=== PATIENT | female | born 1990 | race Two or more races ===

== ENCOUNTER 2017-05-29 19:53 | Emergency (ER) | payer SELFPAY ==
[2017-05-29] MEDS ORDERED: ACETAMINOPHEN 325 MG TABLET PO ONE (20:26)
--- NOTE | 2017-05-29 20:30 | ER Document Report ---
ED General - General Chief Complaint: Vaginal Bleeding Stated Complaint: VAGINAL BLEEDING,SORE THROAT,CHILLS Time Seen by Provider: 05/29/17 20:24 Mode of Arrival: Ambulatory Information source: Patient Notes: Patient presents to emergency department with multiple complaints. She reports sore throat chills body aches neck pain and headache that started this morning. Patient reports she took ibuprofen yesterday but nothing today. Patient also reports she has been spotting for the past 30 days with light cramping. She reports last normal menses was in March. She reports she is sexually active and does not use protection. She denies vaginal discharge denies pain with void. Denies urinary frequency, denies fever vomiting diarrhea. TRAVEL OUTSIDE OF THE [place] IN LAST 30 DAYS: No - HPI Onset: Other - this morning flu symptoms, spotting for 30 days Quality of pain: Cramping Severity: Moderate Pain Level: 3 Associated symptoms: Headache, Sore throat Exacerbated by: Denies Relieved by: Denies Similar symptoms previously: No Recently seen / treated by doctor: No - Related Data Allergies/Adverse Reactions: No Known Allergies Allergy (Verified 05/29/17 19:54) Past Medical History - General Information source: Patient Last Menstrual Period: last normal Nov - Social History Smoking Status: Unknown if Ever Smoked Cigarette use (# per day): No Frequency of alcohol use: Occasional Drug Abuse: None Occupation: alice Lives with: Family Family History: Reviewed & Not Pertinent Patient has suicidal ideation: No Patient has homicidal ideation: No - Medical History Medical History: Negative Surgical Hx: Negative - Immunizations Hx Diphtheria, Pertussis, Tetanus Vaccination: No Review of Systems - Review of Systems Notes: Review HPI for review of systems., All other systems negative Physical Exam - Vital signs Vitals: Temp Pulse Resp BP Pulse Ox 99.4 F 101 H 18 129/85 H 95 05/29/17 19:57 05/29/17 19:57 05/29/17 19:57 05/29/17 19:57 05/29/17 19:57 - Notes Notes: PHYSICAL EXAMINATION: GENERAL: Well-appearing and in no acute distress nontoxic looking HEAD: Atraumatic, normocephalic. EYES: Pupils equal round extraocular movements intact, sclera anicteric, conjunctiva are normal. ENT: nares patent, oropharynx + erythema, no exudates. Moist mucous membranes. opens mouth wide, clear voice NECK: Normal range of motion, supple without lymphadenopathy LUNGS: CTAB and equal. No wheezes rales or rhonchi. HEART: Regular rate and rhythm without murmurs ABDOMEN: Soft, no tenderness. No guarding, no rebound EXTREMITIES: Normal range of motion, no pitting edema. No cyanosis. NEUROLOGICAL: Cranial nerves grossly intact. Normal sensory/motor exams. PSYCH: Normal mood, normal affect. SKIN: Warm, Dry, normal turgor, no rashes or lesions noted Course - Re-evaluation Re-evalutation: 05/29/17 22:17 Patient instructed on negative strep and flu test. Instructed on positive and transvaginal ultrasound ordered. She verbalized understanding of questions asked. She was instructed on results of ultrasound 8w2d. Also instructed on follow-up hCG on Wednesday him the importance of follow-up with her [employer] HEAD[employer]ATE OPERATOR. Patient reports she has insurance and will follow up with [facility] on Wednesday. - Vital Signs Vital signs: Temp Pulse Resp BP Pulse Ox 98.9 F 86 18 126/83 H 99 05/29/17 23:23 05/29/17 23:23 05/29/17 19:57 05/29/17 23:23 05/29/17 23:23 - Laboratory Laboratory results interpreted by me: 05/29/17 20:50 Beta HCG, Quant 12776.00 H - Diagnostic Test Radiology reviewed: Reports reviewed Discharge - Discharge Clinical Impression: Sore throat, Body aches, Vaginal bleeding Qualifiers: Weeks of gestation: 8 weeks Qualified Code(s): Z3A.08 - 8 weeks gestation of Condition: Stable Disposition: HOME, SELF-CARE Instructions: Acetaminophen, [facility], [facility], ([facility]), Sore Throat ([facility]) Additional Instructions: *You have been evaluated for a sore throat, flu like symptoms, headache, vaginal bleeding, abd cramping, *Your ultrasound showed that you are 8 weeks 2 days with a heart rate of 195 with subchorionic bleed. *Your flu and strep test were negative *Warm salt water gargles and throat lozenges for comfort for your sore throat *Do not let anyone drink/eat after you *Good hand washing *Follow-up with a primary care provider within one week for recheck *Follow up with the health department or LONGWALL HEADGATE OPERATOR for care within one week *Return to [facility] Wednesday for repeat test. Call Pat at [phone] for results two hours after the test. Your HCG level today was 70,355 *Return to ED for worsening condition change, needs Forms: Elevated Blood Pressure, Follow-Up Laboratory Testing
[2017-05-29 21:12] LABS: A TYPE INFLUENZA AG NEGATIVE (NEGATIVE); B INFLUENZA AG NEGATIVE (NEGATIVE)
--- NOTE | 2017-05-29 23:06 | RADIOLOGY REPORT (SQ) ---
EXAM DESCRIPTION: U/S OB TRANSVAG W/DOPPLER COMPLETED DATE/TIME: 05/29/2017 10:51 pm REASON FOR STUDY: vag bleed abd cramp COMPARISON: None. TECHNIQUE: Transvaginal static and realtime grayscale images acquired of the pelvis. Additional sincere cted spectral and color Doppler images recorded. All images stored on PACs. [id number] LIMITATIONS: None. FINDINGS: FETUS: Living intrauterine . EGA: 8 weeks, 2 days KARRI: 01/06/2018 FHR: 195 beats per minute. SUBCHORIONIC BLEED: Yes SIZE OF BLEED: 2.6 x 0.8 x 1.4 cm UTERUS: No masses. No anomalies. CERVICAL LENGTH: 3.5 cm Closed. RIGHT ADNEXA: Ovary not identified. No adnexal free fluid. No adnexal masses. LEFT ADNEXA: Ovary not identified. No adnexal free fluid. No adnexal masses. FREE FLUID: None. OTHER: No other significant finding. IMPRESSION: LIVING INTRAUTERINE . EGA 8 weeks, 2 days Trimester of : First - 0 to 13 weeks. TECHNICAL DOCUMENTATION: JOB ID: [id number] [employer]- All Rights Reserved
[2017-05-29 23:24] VITALS: BP 126/83
== END 2017-05-29 23:31 | disposition home or self-care (01) ==
LOC: ER 19:53
DX: O20.9 Hemorrhage in early pregnancy, unspecified (principal); O99.511 Diseases of the respiratory system complicating pregnancy, first trimester; J02.9 Acute pharyngitis, unspecified; O26.891 Other specified pregnancy related conditions, first trimester; R51 Headache; R68.83 Chills (without fever); O99.89 Other specified diseases and conditions complicating pregnancy, childbirth and the puerperium; M54.2 Cervicalgia; Z3A.08 8 weeks gestation of pregnancy
CPT/HCPCS: 36415; 76817; 84702; 87070; 87804; 87880; 93976; 99284

== ENCOUNTER → 2017-05-31 | Outpatient (CLI) | payer SELFPAY | LOC: OD 12:42 | PROVIDERS: ATTEND Nurse Practitioner Family | DX: O26.859 Spotting complicating pregnancy, unspecified trimester (principal); Z3A.00 Weeks of gestation of pregnancy not specified | CPT/HCPCS: 36415; 84702 ==

== ENCOUNTER 2018-06-03 10:21 | Emergency (ER) | payer SELFPAY ==
--- NOTE | 2018-06-03 11:26 | ER Document Report ---
ED Medical Screen (RME) - General Chief Complaint: Abdominal Cramping Stated Complaint: ABDOMINAL PAIN Time Seen by Provider: 06/03/18 11:18 Primary Care Provider: DOUG BAUMAN NP [NURSE PRACTITIONER] - Follow up as needed Notes: Patient says that she has had positive tests and has had some spotting since May 12, but it is gotten heavier bleeding in the past couple of days. She is having daily cramping that is becoming more severe. She had 2+ home test last week. Has not seen OB or had an ultrasound. This will be the patient's second . TRAVEL OUTSIDE OF THE [place] IN LAST 30 DAYS: No - Related Data Allergies/Adverse Reactions: No Known Allergies Allergy (Verified 06/03/18 10:23) Past Medical History - Social History Cigarette use (# per day): No Chew tobacco use (# tins/day): No Frequency of alcohol use: Occasional Drug Abuse: None Family history: Reviewed & Not Pertinent - Immunizations Hx Diphtheria, Pertussis, Tetanus Vaccination: No Review of Systems - Review of Systems Notes: REVIEW OF SYSTEMS: CONSTITUTIONAL : Denies fever. CARDIOVASCULAR: Denies chest pain. RESPIRATORY: Denies cough, chest congestion, or shortness of breath. GASTROINTESTINAL: Denies abdominal pain or nausea, vomiting, or diarrhea. GENITOURINARY: Denies difficulty or painful urinating, urinary frequency, blood in urine. See HPI. MUSCULOSKELETAL: Denies back or neck pain. Denies joint pain or swelling. SKIN: Denies rash or skin lesions. NEUROLOGICAL: Denies LOC or altered mental status. Denies headache. Denies sensory loss or motor deficits. ALL OTHER SYSTEMS REVIEWED AND NEGATIVE. Physical Exam - Vital signs Vitals: Temp Pulse Resp BP Pulse Ox 98.5 F 83 18 129/80 H 100 06/03/18 10:56 06/03/18 10:56 06/03/18 10:56 06/03/18 10:56 06/03/18 10:56 Interpretation: Normal Notes: PHYSICAL EXAMINATION: GENERAL: Well-appearing, in no acute distress. HEAD: Atraumatic, normocephalic. EYES: Pupils equal round and reactive to light, extraocular movements intact. NECK: Normal range of motion, supple. LUNGS: Breath sounds clear and equal bilaterally. HEART: Regular rate and rhythm without murmurs. ABDOMEN: Soft, nontender. No guarding or rebound. No masses. BACK: No tenderness throughout entire back. EXTREMITIES: Normal range of motion without pain. NEUROLOGICAL: Normal speech, normal gait. Normal sensory, motor, and reflex exams. Awake, alert, and oriented x3. Cranial nerves normal. PSYCH: Normal mood, normal affect. SKIN: Warm, dry, no rashes. Course - Re-evaluation Re-evalutation: 06/03/18 21:14 I have advised the patient of the lab results and ultrasound. I have told her that she is right about the time that we should be able to see a heartbeat and the lack of a heartbeat may indicate a problem with the . It is borderline whether she is far enough along to see a heartbeat or not. I have advised the patient to get another outpatient quantitative beta hCG done next Wednesday or Wednesday and call me and I will check the results and let her know the outcome. Advised to return if she runs a fever or has significant worsening of pain or other symptoms. Patient is Rh- and was given RhoGam. - Vital Signs Vital signs: Temp Pulse Resp BP Pulse Ox 98.5 F 72 16 128/78 H 100 06/03/18 10:56 06/03/18 14:16 06/03/18 14:16 06/03/18 14:16 06/03/18 14:16 - Laboratory Result Diagrams: 06/03/18 11:39 Laboratory results interpreted by me: 06/03/18 11:39 Beta HCG, Quant 54985.00 H - Diagnostic Test Radiology reviewed: Image reviewed, Reports reviewed - Ultrasound shows single IUP with questionable viability. 6 weeks 5 days gestation. pole noted. No visualized heart rate. Doctor's Discharge - Discharge Clinical Impression: , Pelvic cramping, Vaginal bleeding, Threatened miscarriage in early Condition: Stable Disposition: HOME, SELF-CARE Additional Instructions: : You are . care is best started as early in as possible. If you're unsure about continuing this , you should discuss this with your physician or with storage battery tester at [facility]. You should take only medications approved by your physician. Acetaminophen can safely be taken for minor pains. As a rule, medication for chronic conditions such as asthma or seizures can safely be continued. You should discuss with the physician every medicine you take. Any regular exercise program can be continued. Talk to your physician, however, before engaging in competitive or demanding sports. Alcohol, smoking, and "street drugs" are dangerous to your baby. Cocaine is especially dangerous. Don't use any illicit drugs! BLEEDING DURING EARLY : You have been evaluated for passing blood while . While we take this symptom very seriously, most women with your degree of bleeding will go on to have a perfectly normal baby. At this time, there is no indication that a miscarriage will occur. (A miscarriage occurs when the fetus is abnormal. There is no medicine or treatment to prevent it.) A more serious cause of bleeding is tubal (or ectopic) . An ultrasound usually can show whether the is in the uterus or in the tube. Sometimes in early , no fetus is seen. In this case, careful follow-up, including repeat blood tests and repeat ultrasound, is necessary. Do not douche or have sex for at least a week, or until OK'd by the doctor. Don't use tampons. Call the doctor or return for re-examination if there is an increase in bleeding or cramping, extreme weakness, fainting, new abdominal pain, fever, or passage of tissue. THREATENED MISCARRIAGE: You have been evaluated for a possible miscarriage. At this time, there is no indication that a miscarriage will occur. Most women with your symptoms will go on to have a perfectly normal baby. However, careful observation will be necessary. A miscarriage occurs when the fetus is abnormal. There is no medicine or treatment for it. You should rest in bed until the symptoms have resolved. Do not douche or have sex for at least a week, or until OK'd by the doctor. Call the doctor or return for re-examination if there is an increase in bleeding or cramping, or passage of tissue. RHOGAM: Rhogam is given to a woman who has Rh negative blood type when she has vaginal bleeding during her or at the time of the delivery of her baby. If a woman is Rh negative, her body will form antibodies against red blood cells from an Rh positive fetus or baby that mix with her blood during a threatened or actual miscarraige or delivery. These antibodies will remain in the woman's body forever and will attack any future Rh positive fetus preventing it from developing into a normal baby. Rhogam is given to prevent the mother's body from forming these antibodies. Your looks like it is about 6 weeks in gestation. We do not see a heartbeat at this time. That may be because it is too early to see 1 or there is a problem with the . As a result, we recommend that she have a repeat blood test done in 3-4 days to see if the test level is rising like it should. REPEAT BLOOD TEST: At this time, it is uncertain if you have a viable . During the first three months of , the hormone produced from the placenta will steadily rise, usually doubling in value every 2 - 3 days. In order to determine if your is viable and likely be succesful, a repeat of this blood test for the hormone is recommended in 2 - 3 days. An order for this test to be done as an outpatient is being provided. After you have this repeat test done, call your doctor or call us for the results. If the value of the test is increasing as would be expected in a normal , then your is likely to be ok. However, if the value of the test is declining, it will suggest something has happened with your and it marni l not likely be a successful . OBSTETRIC-GYNECOLOGIC (OB-MANUFACTURING PROJECT ENGINEER) PHYSICIANS IN [place]: [facility] [address] [place] [address] [phone] If you we will get a repeat blood test drawn on Wednesday or Wednesday and call me, I will give you the results. Forms: Follow-Up Laboratory Testing Referrals: DOUG BAUMAN NP [NURSE PRACTITIONER] - Follow up as needed
[2018-06-03 11:57] LABS: ABSOLUTE LYMPHOCYTES (AUTO) 1.8 10^3/uL (0.5-4.7); ABSOLUTE MONOCYTES (AUTO) 0.6 10^3/uL (0.1-1.4); ABSOLUTE NEUT (AUTO) 7.3 10^3/uL (1.7-8.2); BASOPHILS % (AUTO) 0.2 % (0-2); EOSINOPHILS % (AUTO) 0.3 % (0-6); HEMATOCRIT 39.4 % (36.0-47.0); HEMOGLOBIN 13.3 g/dL (12.0-15.5); LYMPHOCYTES % (AUTO) 18.1 % (13-45); MEAN CORPUSCULAR HEMOGLOBIN 27.6 pg (27.0-33.4); MEAN CORPUSCULAR HGB CONC 33.8 g/dL (32.0-36.0); MEAN CORPUSCULAR VOLUME 82 fl (80-97); MONOCYTES % (AUTO) 6.6 % (3-13); PLATELET COUNT 264 10^3/uL (150-450); RED BLOOD COUNT 4.83 10^6/uL (3.72-5.28); RED CELL DISTRIBUTION WIDTH 13.4 % (11.5-14.0); SEGMENTED NEUTROPHILS % (AUTO) 74.8 % (42-78); TOTAL CELLS COUNTED % (AUTO) 100 %; WHITE BLOOD COUNT 9.7 10^3/uL (4.0-10.5)
--- NOTE | 2018-06-03 13:23 | RADIOLOGY REPORT (SQ) ---
EXAM DESCRIPTION: U/S OB TRANSVAGINAL W/O DOP COMPLETED DATE/TIME: 06/03/2018 1:10 pm REASON FOR STUDY: Positive home preg test, bleeding and cramping COMPARISON: None. TECHNIQUE: Transvaginal static and realtime grayscale images acquired of the pelvis. Additional sincere cted spectral and color Doppler images recorded. All images stored on PACs. bHCG: Pending. CLINICAL DATES: Not Available. LIMITATIONS: None. FINDINGS: FETUS: Single IUP. Viability cannot be determined. ULTRASOUND EGA: 6 weeks 5 days. ULTRASOUND KARRI: 01/22/2019 EFW: Not applicable less than 20 weeks. CRL: Visualized. FHR: Not visualized. SURVEY: No visualized anomalies. AMNIOTIC FLUID: Adequate amount. PLACENTA: Not yet developed due to early gestation. SUBCHORIONIC BLEED: No. SIZE OF BLEED: Not applicable. UTERUS: No masses. No anomalies. RIGHT ADNEXA: Ovary not identified due to poor acoustical window. No adnexal free fluid. No adnexal masses. LEFT ADNEXA: Normal ovary with normal vascular flow. No adnexal free fluid. No adnexal masses. FREE FLUID: None. OTHER: No other significant finding. IMPRESSION: Single intrauterine gestation. pole is identified. Heart activity could not be i dentified. EGA 6 weeks 5 days based on crown-rump length. Followup beta HCG and ultrasound is recommended to en sure viability. Trimester of : First - 0 to 13 weeks. TECHNICAL DOCUMENTATION: JOB ID: [id number] [employer]- All Rights Reserved rev Reading location - IP/workstation name: [email or web address]
[2018-06-03 14:18] VITALS: BP 128/78
== END 2018-06-03 14:18 | disposition home or self-care (01) ==
LOC: ER 10:21
DX: O20.0 Threatened abortion (principal); O26.891 Other specified pregnancy related conditions, first trimester; R10.2 Pelvic and perineal pain; R10.9 Unspecified abdominal pain; Z3A.01 Less than 8 weeks gestation of pregnancy
CPT/HCPCS: 99284; 96372; 86900; 86901; 36415; 86850; 84702; 85025; 76817; J2790

== ENCOUNTER → 2018-06-06 | Outpatient (CLI) | payer SELFPAY ==
--- NOTE | 2018-06-06 13:11 | Progress Note ---
Provider Note Provider Note: Patient had repeat beta HCG this morning and it is 72,000, up minimally. Advised patient she needs a followup repeat ultrasound in a week. She is going to try to arrange to see a local RAILRO[employer] DINING CAR STEWARD/STEWARDESS. Doing well. Advised to return to the ED if heavy bleeding with clots, etc, or fever. Star Trevino MD
== END ==
LOC: LAB 11:12
PROVIDERS: ATTEND Emergency Medicine
DX: O20.0 Threatened abortion (principal)
CPT/HCPCS: 36415; 84702

== ENCOUNTER 2018-06-29 12:07 | Day surgery (SDC) | payer MEDICAID ==
[~2018-06-29 12:07] MED LIST: DEXAMETHASONE SOD PHOSPHATE INJ 4 MG/1 ML VIAL ONE; KETOROLAC TROMETHAMINE 60 MG/2 ML SDV ONE; LIDOCAINE 2% INJ-PF (20 MG/ML) 2 ML AMPUL ONE; METOCLOPRAMIDE HCL INJ/PF 10 MG/2 ML SDV ONE; ONDANSETRON HCL INJ/PF 4 MG/2 ML SDV ONE
[2018-06-29] MEDS ORDERED: DOXYCYCLINE HYCLATE 100 MG in DEXTROSE 5%-WATER 250 ML IV PRN (12:22)
[2018-06-29] MEDS ORDERED: METHYLERGONOVINE MALEATE INJ/PF 0.2 MG/1 ML AMPULE ONE (12:26)
[2018-06-29] MEDS ORDERED: MISOPROSTOL 0.2 MG TABLET ONE (12:31)
[2018-06-29] MEDS ORDERED: FENTANYL CITRATE INJ/PF 100 MCG/2 ML AMPUL ONE (12:48)
[2018-06-29] MEDS ORDERED: PROPOFOL INJ 200 MG/20 ML VIAL IV ONE (12:48)
[2018-06-29] MEDS ORDERED: MIDAZOLAM 2 MG/2 ML INJ ONE (12:48)
[2018-06-29 13:02] LABS: HEMATOCRIT 36.2 % (36.0-47.0); HEMOGLOBIN 12.2 g/dL (12.0-15.5); MEAN CORPUSCULAR HEMOGLOBIN 27.6 pg (27.0-33.4); MEAN CORPUSCULAR HGB CONC 33.6 g/dL (32.0-36.0); MEAN CORPUSCULAR VOLUME 82 fl (80-97); PLATELET COUNT 252 10^3/uL (150-450); RED CELL DISTRIBUTION WIDTH 13.5 % (11.5-14.0); WHITE BLOOD COUNT 6.9 10^3/uL (4.0-10.5)
[2018-06-29] MEDS ORDERED: MEPERIDINE HCL/PF INJ 25 MG/1 ML DISP.SYRIN IV PRN (13:35)
[2018-06-29] MEDS ORDERED: DIPHENHYDRAMINE HCL 50 MG/ML VIAL IV PRN (13:35)
[2018-06-29] MEDS ORDERED: FENTANYL CITRATE INJ/PF 100 MCG/2 ML AMPUL IV PRN ×3 (13:35)
[2018-06-29] MEDS ORDERED: OXYCODONE-ACETAMINOPHEN 5-325 MG TABLET PO PRN ×2 (13:35)
[2018-06-29] MEDS ORDERED: PROMETHAZINE HCL INJ 25 MG/1 ML VIAL IV PRN ×2 (13:35)
--- NOTE | 2018-06-29 13:56 | Operative Report ---
Operative Report DATE OF SURGERY: 06/29/18 PREOPERATIVE DIAGNOSIS: 1. Missed at 8 weeks. 2. Rh Negative (Rhogam given) POSTOPERATIVE DIAGNOSIS: Same OPERATION: Suction dilatation and curettage SURGEON: DAVID MARKHAM ANESTHESIA: GA TISSUE REMOVED OR ALTERED: Products of conception COMPLICATIONS: None ESTIMATED BLOOD LOSS: 150 mL INTRAOPERATIVE FINDINGS: Uterus sounded 8 cm; used a 8 mm curved Bahamian curette; minimal amounts of products of conception PROCEDURE: The patient was taken to the Operating Room where general anesthesia was obtained without difficulty. She was prepped and draped in the normal sterile fashion in the dorsal lithotomy position. A speculum was placed in the vagina. A red Arreguin catheter was placed in the patient's bladder and approximately 50 mL's of clear urine was evacuated. The anterior cervix was grasped with a single-tooth tenaculum and the uterus sounded to 8 cm. The cervix was noted to be closed at the beginning of the procedure. Sequential dilators were then used to dilate the cervix to accommodate the the mm suction curett curved. The 8 mm curved suction curet was gently advanced in the usual fashion and good return of tissue. The suction device was then activated and the curett rotated to clear the uterus of the products of conception. A sharp curettage was then performed. The suction device was then gently reintroduced and activated and the curett rotated to clear the uterus of conception which was loosened with recent sharp curettage. The sharp curettage was then performed again until a gritty texture was noted and the cavity was felt to be empty of further tissue. At this time there was minimal bleeding noted from the cervix. All instruments were removed from the patient's cervix and vagina. Monsel's solution was applied to the tenaculum site for hemostasis. Sponge and instrument counts are correct 2. Doxycycline 100 mg IV was given perioperatively. Patient was given Methergine 0.2 mg IM, as well as Cytotec 800 mcg per rectum. The patient tolerated the procedure well and was taken to the recovery area awake and in stable condition.
[2018-06-29] MEDS ORDERED: ACETAMINOPHEN 1,000 MG/100 ML RTUPB IV ONE ×2 (14:27→14:45)
[2018-06-29 16:30] VITALS: BP 139/88
== END 2018-06-29 15:35 | disposition home or self-care (01) ==
LOC: OROUT 12:07
PROVIDERS: ATTEND Obstetrics & Gynecology
DX: O02.1 Missed abortion (principal); E66.9 Obesity, unspecified; Z68.38 Body mass index [BMI] 38.0-38.9, adult
CPT/HCPCS: 36415; 85027; 88305 ×2; 59820; J2250; J1100; J3490 ×2; J1885; J3010; J2210; J2765; J2405; J7060; J2704; J0131; 1965

== ENCOUNTER 2018-11-04 13:08 | Emergency (ER) | payer MEDICAID ==
[2018-11-04 13:26] VITALS: BP 143/85
--- NOTE | 2018-11-04 13:43 | ER Document Report ---
ED Medical Screen (RME) - General Chief Complaint: Vaginal Bleeding Stated Complaint: VAGINAL BLEEDING Time Seen by Provider: 11/04/18 13:34 Primary Care Provider: MILO CALLAWAY MD [Primary Care Provider] - Follow up as needed Mode of Arrival: Ambulatory Information source: Patient Notes: This is a 28-year-old female presenting to the emergency department chief c alanlaint of abnormal vaginal bleeding. Patient reports her last period was 2 weeks ago. She states that she is now having light vaginal bleeding and is very concerned. Patient is unsure if she might be . Exam: Patient alert, oriented and answering all questions. Abdomen soft, nontender no guarding or rebound. I have greeted and performed a rapid initial assessment of this patient. A comprehensive ED assessment and evaluation of the patient, analysis of test results and completion of the medical decision making process will be conducted by additional ED providers. I have specifically instructed the patient or family members with the patient to immediately return to any nursing staff should anything change in the patient's condition or with their chief complaint. This medical record was dictated with voice recognizing software. There may be grammatical, syntax errors that are unintended. TRAVEL OUTSIDE OF THE [place] IN LAST 30 DAYS: No - Related Data Allergies/Adverse Reactions: No Known Allergies Allergy (Verified 11/04/18 13:11) Past Medical History - General Last Menstrual Period: 10/12/18 - Social History Chew tobacco use (# tins/day): No Frequency of alcohol use: Occasional Drug Abuse: None Family history: Reviewed & Not Pertinent - Past Medical History Cardiac Medical History: Denies: Hx Coronary Artery Disease, Hx Heart Attack Pulmonary Medical History: Denies: Hx Asthma, Hx Bronchitis, Hx COPD, Hx Pneumonia Neurological Medical History: Denies: Hx Cerebrovascular Accident, Hx Seizures Renal/ Medical History: Denies: Hx Peritoneal Dialysis Musculoskeltal Medical History: Denies Hx Arthritis - Immunizations Hx Diphtheria, Pertussis, Tetanus Vaccination: No Physical Exam - Vital signs Vitals: Temp Pulse Resp BP Pulse Ox 98.4 F 81 16 143/85 H 97 11/04/18 13:25 11/04/18 13:25 11/04/18 13:25 11/04/18 13:25 11/04/18 13:25 Course - Vital Signs Vital signs: Temp Pulse Resp BP Pulse Ox 98.4 F 81 16 143/85 H 97 11/04/18 13:25 11/04/18 13:25 11/04/18 13:25 11/04/18 13:25 11/04/18 13:25 Doctor's Discharge - Discharge Referrals: MILO CALLAWAY MD [Primary Care Provider] - Follow up as needed
[2018-11-04 14:07] LABS: ABSOLUTE BASOPHILS # (AUTO) 0.1 10^3/uL (0.0-0.2); ABSOLUTE EOSINOPHILS # (AUTO) 0.1 10^3/uL (0.0-0.6); ABSOLUTE LYMPHOCYTES (AUTO) 2.1 10^3/uL (0.5-4.7); ABSOLUTE MONOCYTES (AUTO) 0.5 10^3/uL (0.1-1.4); BASOPHILS % (AUTO) 0.7 % (0-2); EOSINOPHILS % (AUTO) 0.7 % (0-6); HEMOGLOBIN 13.4 g/dL (12.0-15.5); MEAN CORPUSCULAR HEMOGLOBIN 26.6 pg (27.0-33.4); MEAN CORPUSCULAR HGB CONC 32.7 g/dL (32.0-36.0); MEAN CORPUSCULAR VOLUME 81 fl (80-97); MONOCYTES % (AUTO) 5.8 % (3-13); PLATELET COUNT 313 10^3/uL (150-450); RED BLOOD COUNT 5.04 10^6/uL (3.72-5.28); SEGMENTED NEUTROPHILS % (AUTO) 68.8 % (42-78); TOTAL CELLS COUNTED % (AUTO) 100 %; WHITE BLOOD COUNT 8.7 10^3/uL (4.0-10.5)
[2018-11-04 14:13] LABS: APPEARANCE,URINE CLEAR; BILIRUBIN,URINE NEGATIVE (NEGATIVE); COLOR,URINE YELLOW; GLUCOSE, URINE NEGATIVE (NEGATIVE); KETONES,URINE NEGATIVE (NEGATIVE); LEUKOCYTE ESTERASE,URINE SMALL (NEGATIVE); NITRITE,URINE NEGATIVE (NEGATIVE); PROTEIN,URINE NEGATIVE (NEGATIVE); URINE SPECIFIC GRAVITY 1.016; UROBILINOGEN,URINE NEGATIVE mg/dL (<2.0)
--- NOTE | 2018-11-04 14:54 | ER Document Report ---
ED General - General Chief Complaint: Vaginal Bleeding Stated Complaint: VAGINAL BLEEDING Time Seen by Provider: 11/04/18 13:34 Primary Care Provider: MILO CALLAWAY MD [ACTIVE STAFF] - Follow up in 1 week Mode of Arrival: Ambulatory Notes: Patient is a 28-year-old female who presents to the emergency department with a chief complaint of vaginal bleeding. She states that she had her last menstrual period 2 weeks ago and she is now having cramping and a small amount of blood on her panty liner and when she wipes. She has had a miscarriage this past June. She denies any past medical history and does not take any medication. She also states that she has an irritating feeling in her vagina. She is having normal bowel movements. Denies any nausea, vomiting, or diarrhea. TRAVEL OUTSIDE OF THE [place] IN LAST 30 DAYS: No - Related Data Allergies/Adverse Reactions: No Known Allergies Allergy (Verified 11/04/18 13:11) Past Medical History - General Information source: Patient Last Menstrual Period: 10/12/18 - Social History Smoking Status: Never Smoker Chew tobacco use (# tins/day): No Frequency of alcohol use: Occasional Drug Abuse: None Family History: Reviewed & Not Pertinent Patient has suicidal ideation: No Patient has homicidal ideation: No - Past Medical History Cardiac Medical History: Denies: Hx Coronary Artery Disease, Hx Heart Attack Pulmonary Medical History: Denies: Hx Asthma, Hx Bronchitis, Hx COPD, Hx Pneumonia Neurological Medical History: Denies: Hx Cerebrovascular Accident, Hx Seizures Renal/ Medical History: Denies: Hx Peritoneal Dialysis Musculoskeletal Medical History: Denies Hx Arthritis - Immunizations Hx Diphtheria, Pertussis, Tetanus Vaccination: No Review of Systems - Review of Systems Notes: REVIEW OF SYSTEMS: CONSTITUTIONAL : Denies recent illness. Denies recent unintentional weight loss. Denies fever, chills, or sweats. EENT: Denies eye, ear, throat, or mouth pain, discharge, or symptoms. Denies nasal or sinus congestion. CARDIOVASCULAR: Denies chest pain. RESPIRATORY: Denies shortness of breath, cough, congestion, difficulty breathing, or wheezing. GASTROINTESTINAL: Denies nausea, vomiting, and diarrhea. Denies abdominal pain. Denies constipation. Last BM: Today GENITOURINARY: Denies difficulty urinating, burning, blood in urine, urgency or frequency. FEMALE GENITOURINARY: See HPI MUSCULOSKELETAL: Denies neck and back pain. Denies joint pain or swelling. SKIN: Denies rash, itchiness, or lesions HEMATOLOGIC : Denies easy bruising or bleeding. LYMPHATIC: Denies swollen, painful, enlarged glands. NEUROLOGICAL: Denies no numbness or tingling denies weakness. Denies headache. Denies altered mental status. Denies alteration in speech. PSYCHIATRIC: Denies stress, anxiety, alteration in sleep patterns, or depression. All other systems reviewed and negative. Physical Exam - Vital signs Vitals: Temp Pulse Resp BP Pulse Ox 98.4 F 81 16 143/85 H 97 11/04/18 13:25 11/04/18 13:25 11/04/18 13:25 11/04/18 13:25 11/04/18 13:25 - Notes Notes: PHYSICAL EXAMINATION: GENERAL: Appears well, healthy, well-nourished, no acute distress. HEAD: Normocephalic, atraumatic. EYES: PERRL, conjunctiva normal, all extraocular movements intact, sclera nonicteric ENT: Moist mucous membranes. NECK: Supple, no noticeable swelling, redness, rash. Normal range of motion. LUNGS: Equal breath sounds bilaterally and clear to auscultation. No wheezes rales or rhonchi. CARDIOVASCULAR: S1-S2, regular rate, regular rhythm. Radial pulses 2+, normal. ABDOMEN: Normoactive bowel sounds. Soft, nontender, no guarding, no rebound tenderness, and no masses palpated. EXTREMITIES: Normal strength and range of motion, no pitting or edema. No cyanosis. NEUROLOGICAL: Moves all extremities upon command. Strength 5/5 in all extremities. PSYCH: Normal mood, normal affect. SKIN: Warm, dry. No rash, lesions, ulcerations noted. Normal skin turgor. TRACER CLERK: Course - Re-evaluation Re-evalutation: Pelvic exam was done with JHOANA Rolle at bedside. No cervical motion tenderness noted. Will await wet mount results. Patient's urinalysis shows a small amount of leukocytes, but I suspect this is due to to her having a trichomonas infection. She also does have 3+ bacteria and 3+ epithelial cells noted on her wet mount. She will be sent home with Flagyl. Patient's transvaginal ultrasound is negative for any acute etiology at this time. No tubo-ovarian abscess noted. CBC and chemistries are unremarkable at this time. Very low suspicion for appendicitis, ovarian torsion, or any life -threatening etiology at this time. Follow-up precautions were given. Verbal discharge instructions were given to the patient. They verbalized understanding. They are stable for discharge. - Vital Signs Vital signs: Temp Pulse Resp BP Pulse Ox 98.4 F 81 16 143/85 H 97 11/04/18 13:25 11/04/18 13:25 11/04/18 13:25 11/04/18 13:25 11/04/18 13:25 - Laboratory Result Diagrams: 11/04/18 13:47 11/04/18 15:23 Laboratory results interpreted by me: 11/04/18 11/04/18 11/04/18 13:47 13:47 15:23 MCH 26.6 L Chloride 108 H Creatinine 0.50 L Urine Blood SMALL H Ur Leukocyte Esterase SMALL H Discharge - Discharge Clinical Impression: Trichomonas infection Condition: Stable Disposition: HOME, SELF-CARE Additional Instructions: You were seen today in the emergency department for vaginal bleeding and cramping. You have a trichomonas infection. You are being prescribed antibiotics. Please take your antibiotics as prescribed. Make sure you finish all your medication. Do not have sex until infection clears. Follow-up with PRESIDING JUDGE in regards to this visit. If you develop a fever greater than 100.4 F, or have any symptoms that are worrisome to you, please return to the emergency department. Prescriptions: Metronidazole [Flagyl 500 mg Tablet] 500 mg PO Q6H #28 tablet Referrals: MILO CALLAWAY MD [ACTIVE STAFF] - Follow up in 1 week
[2018-11-04 15:14] LABS: BACTERIA (WET MOUNT) 3+ BACTERIA SEEN; EPITHELIALS (WET MOUNT) 3+ EPITHELIALS SEEN; RBCS (WET MOUNT) FEW RBCS SEEN; T.VAGINALIS (WET MOUNT) TRICHOMONAS SEEN; WBCS (WET MOUNT) 3+ WBCS SEEN; YEAST (WET MOUNT) NO YEAST SEEN
[2018-11-04 15:57] LABS: ALANINE AMINOTRANSFERASE 24 U/L (9-52); ALBUMIN 4.4 g/dL (3.5-5.0); ALKALINE PHOSPHATASE 50 U/L (38-126); ANION GAP 9 (5-19); ASPARTATE AMINO TRANSFERASE 19 U/L (14-36); BILIRUBIN,DIRECT 0.2 mg/dL (0.0-0.4); BILIRUBIN,TOTAL 0.3 mg/dL (0.2-1.3); BLOOD UREA NITROGEN 10 mg/dL (7-20); CALCIUM 9.8 mg/dL (8.4-10.2); CARBON DIOXIDE 22 mmol/L (22-30); CHLORIDE 108 mmol/L (98-107); GLUCOSE 90 mg/dL (75-110); POTASSIUM 4.4 mmol/L (3.6-5.0); TOTAL PROTEIN 7.3 g/dL (6.3-8.2)
--- NOTE | 2018-11-04 16:37 | RADIOLOGY REPORT (SQ) ---
EXAM DESCRIPTION: U/S NON OB PEL TV W/DOPPLER COMPLETED DATE/TIME: 11/04/2018 4:23 pm REASON FOR STUDY: vaginal bleeding COMPARISON: OB ultrasound 06/03/2018 TECHNIQUE: Dynamic and static grayscale images acquired of the pelvis via transvaginal approach and recorded on PACS. Additional selected color Doppler and spectral images recorded. LIMITATIONS: None. FINDINGS: UTERUS: Contour normal. No mass. 7.5 x 5.5 x 5.6 cm in size ENDOMETRIAL STRIPE: No focal or generalized thickening. No masses. Endometrial stripe 8 to 9 mm in t hickness. CERVIX: Closed, 2.2 cm in length with tiny multiple nabothian cysts. RIGHT OVARY AND DOPPLER: Normal size, 2.7 x 1.7 x 1.6 cm in size. No worrisome masses. Normal arteria l vascular flow without evidence for torsion. LEFT OVARY AND DOPPLER: Normal size, 2.6 x 2.7 x 2.6 cm in size. No worrisome masses. Normal arterial vascular flow without evidence for torsion. FREE FLUID: None noted. OTHER: No other significant finding. IMPRESSION: UNREMARKABLE TRANSVAGINAL PELVIC ULTRASOUND. TECHNICAL DOCUMENTATION: JOB ID: [id number] 1991 [employer]- All Rights Reserved Rev-09/17 Reading location - IP/workstation name: [email or web address]
[2018-11-04 16:46] LABS: CHLAM PCR NOT DETECTED (NOT DETECT)
== END 2018-11-04 17:17 | disposition home or self-care (01) ==
LOC: ER 13:08
DX: A59.9 Trichomoniasis, unspecified (principal); N93.9 Abnormal uterine and vaginal bleeding, unspecified; Z87.59 Personal history of other complications of pregnancy, childbirth and the puerperium
CPT/HCPCS: 36415; 76830; 80053; 81001; 81025; 85025; 87210; 87491; 87591; 93976; 99284

== ENCOUNTER 2019-02-06 16:35 | Emergency (ER) | payer MEDICAID ==
--- NOTE | 2019-02-06 17:44 | ER Document Report ---
ED Medical Screen (RME) - General Chief Complaint: Pelvic Pain Stated Complaint: LOWER BACK PAIN Time Seen by Provider: 02/06/19 17:40 Mode of Arrival: Ambulatory Information source: Patient Notes: 29-year-old female presented to ED for complaint of pelvic pain vaginal discharge and vaginal bleeding. She states she was just seen recently and treated for trichomonas. She states her boyfriend was also treated but a week ago she started having vaginal discharge bleeding pain. She states that she is having the same symptoms that she had the first time. Patient is alert oriented respirations regular and unlabored speaking in full sentences walks with even steady gait. I have greeted and performed a rapid initial assessment of this patient. A comprehensive ED assessment and evaluation of the patient, analysis of test results and completion of medical decision making process will be conducted by an additional ED providers. TRAVEL OUTSIDE OF THE [place] IN LAST 30 DAYS: No - Related Data Allergies/Adverse Reactions: No Known Allergies Allergy (Verified 11/04/18 13:11) Past Medical History - Social History Family history: Reviewed & Not Pertinent - Past Medical History Cardiac Medical History: Denies: Hx Coronary Artery Disease, Hx Heart Attack Pulmonary Medical History: Denies: Hx Asthma, Hx Bronchitis, Hx COPD, Hx Pneumonia Neurological Medical History: Denies: Hx Cerebrovascular Accident, Hx Seizures Renal/ Medical History: Denies: Hx Peritoneal Dialysis Musculoskeltal Medical History: Denies Hx Arthritis - Immunizations Hx Diphtheria, Pertussis, Tetanus Vaccination: No Physical Exam - Vital signs Vitals: Temp Pulse Resp BP Pulse Ox 98.4 F 89 16 139/89 H 100 02/06/19 17:17 02/06/19 17:17 02/06/19 17:17 02/06/19 17:17 02/06/19 17:17 Course - Vital Signs Vital signs: Temp Pulse Resp BP Pulse Ox 98.4 F 89 16 139/89 H 100 02/06/19 17:17 02/06/19 17:17 02/06/19 17:17 02/06/19 17:17 02/06/19 17:17
[2019-02-06 19:18] LABS: BACTERIA (WET MOUNT) 3+ BACTERIA SEEN; EPITHELIALS (WET MOUNT) 4+ EPITHELIALS SEEN; RBCS (WET MOUNT) 1+ RBCS SEEN; T.VAGINALIS (WET MOUNT) NO TRICHOMONAS SEEN; WBCS (WET MOUNT) 1+ WBCS SEEN; YEAST (WET MOUNT) NO YEAST SEEN
[2019-02-06 19:27] LABS: APPEARANCE,URINE CLEAR; BILIRUBIN,URINE NEGATIVE (NEGATIVE); COLOR,URINE YELLOW; GLUCOSE, URINE NEGATIVE (NEGATIVE); KETONES,URINE NEGATIVE (NEGATIVE); LEUKOCYTE ESTERASE,URINE NEGATIVE (NEGATIVE); NITRITE,URINE NEGATIVE (NEGATIVE); PROTEIN,URINE NEGATIVE (NEGATIVE); URINE SPECIFIC GRAVITY 1.025
[2019-02-06 20:51] LABS: CHLAM PCR NOT DETECTED (NOT DETECT)
--- NOTE | 2019-02-06 21:37 | RADIOLOGY REPORT (SQ) ---
EXAM DESCRIPTION: US PELVIS TRANSVAGINAL COMPLETED DATE/TME: 02/06/2019 17:41 CLINICAL HISTORY: 29 years, Female, pelvic pain vaginal bleeding COMPARISON: Pelvic ultrasound 11/04/2018 TECHNIQUE: LIMITATIONS: None. FINDINGS: There are no fibroids. The uterus measures 7.7 x 5.6 x 4.8 cm in overall size. The endometrial stripe measures 8 mm. There is a minimal amount of fluid in the cervical canal. There is a 1.6 cm area of calcification in the left ovary. A similar finding was present on the prior study. There is a small follicle in the left adnexa. The right ovary is unremarkable. IMPRESSION: 1.6 cm area of calcification in the left ovary. Recommend pelvic US follow-up in 6-12 weeks; if unchanged, continue follow-up with US OR MRI with IV contrast - if follow-up studies do not confirm endometrioma or dermoid, consider surgical evaluation. If cyst has internal nodule without blood flow/enhancing, recommend pelvic MRI with IV contrast or surgical evaluation. Reference: Radiology 2010 Jan;256(3):943-54 copyright 2010 [employer] All Rights Reserved
--- NOTE | 2019-02-06 22:05 | ER Document Report ---
ED GI/ - General Chief Complaint: Pelvic Pain Stated Complaint: LOWER BACK PAIN Time Seen by Provider: 02/06/19 22:04 Mode of Arrival: Ambulatory Information source: Patient Notes: HISTORY OF PRESENT ILLNESS: Patient is a 29-year-old female with no significant past medical history who presents with dysuria with vaginal burning with urination. Patient also reports that she had an irregular menstrual cycle this month and reports she could be , had similar symptoms with her last . Location: Pelvic, vaginal Onset: Yesterday Alleviation: None Provocation: Urination Quality: Burning, aching Radiation: None Severity: Mild to moderate Timing: Constant History of abdominal surgery: None Associated symptoms: Reports vaginal irritation but no bleeding or discharge, dysuria but no hematuria, increased urinary frequency Last bowel movement: Today and normal Last menstrual period: Last month REVIEW OF SYSTEMS: CONSTITUTIONAL : Denies fever or chills, no sweats. Denies recent illness. EENT: Denies eye, ear, throat, or mouth pain or symptoms. Denies nasal or sinus congestion. CARDIOVASCULAR: Denies chest pain. Denies swelling of the legs. RESPIRATORY: Denies cough, cold, or chest congestion. Denies shortness of breath or difficulty breathing. Denies wheezing. GASTROINTESTINAL: Positive for abdominal pain. Denies nausea, vomiting, or diarrhea. Denies constipation. GENITOURINARY: Positive for dysuria but no hematuria. FEMALE GENITOURINARY: Denies vaginal bleeding, abnormal or irregular periods. MUSCULOSKELETAL: Denies neck or back pain or joint pain or swelling. SKIN: Denies rash or skin lesions. HEMATOLOGIC : Denies easy bruising or bleeding. LYMPHATIC: Denies swollen, enlarged glands. NEUROLOGICAL: Denies altered mental status or loss of consciousness. Denies headache. Denies weakness or paralysis or loss of use of either side. Denies problems with gait or speech. Denies sensory or motor loss. PSYCHIATRIC: Denies anxiety or stress or depression. All other systems reviewed and negative. PHYSICAL EXAMINATION: GENERAL: Well-appearing, well-nourished and in no acute distress. HEAD: Atraumatic, normocephalic. No scalp deformity, depression, or crepitance. EYES: Pupils are 3 mm and equal/round/reactive to light, extraocular movements intact, sclera anicteric, conjunctiva are normal. ENT: Nares patent bilaterally, oropharynx. Moist mucous membranes. No tonsil hypertrophy. NECK: Normal range of motion, supple without lymphadenopathy. LUNGS: Breath sounds present, equal, and clear to auscultation bilaterally. No wheezes, rales, or rhonchi. HEART: Regular rate and rhythm without murmurs, rubs, or gallops. 2+ peripheral pulses. Normal capillary refill. ABDOMEN: Soft, nontender, nondistended. Normoactive bowel sounds. No guarding, no rebound. No masses appreciated. BACK: Normal contour, no midline tenderness. Rectal exam deferred. GENITAL/PELVIC: Deferred. EXTREMITIES: Normal range of motion, no pitting or edema. No cyanosis. NEUROLOGICAL: No focal neurological deficits. Moves all extremities spontaneously and on command. PSYCH: Normal mood, normal affect. No suicidal thoughts/ideations. No homicidal thoughts/ideations. No hallucinations. SKIN: Warm, dry, normal turgor, no rashes or lesions noted. ASSESSMENT AND PLAN: This patient is a 29-year-old female who presents with lower abdominal pain concerning for UTI versus cystitis versus . 1. Will obtain urine, test, and reassess. 2. Will treat infectious etiology if indicated, if patient is we will follow-up with ultrasound. TRAVEL OUTSIDE OF THE [place] IN LAST 30 DAYS: No - HPI Patient complains to provider of: Abdominal pain, Dysuria Onset: Yesterday Timing/Duration: Gradual Quality of pain: Burning Severity at maximum: Mild Severity in ED: Mild Pain Level: 1 Location: Vaginal Vaginal bleeding (Compared to normal period): None Sexual history: Active Associated symptoms: Dysuria, Hematuria, Urinary frequency, Urinary urgency Exacerbated by: Denies Relieved by: Denies Similar symptoms previously: No Recently seen / treated by doctor: No - Related Data Allergies/Adverse Reactions: No Known Allergies Allergy (Verified 11/04/18 13:11) Past Medical History - General Information source: Patient - Social History Smoking Status: Never Smoker Chew tobacco use (# tins/day): No Frequency of alcohol use: None Drug Abuse: None Lives with: Alone Family History: Reviewed & Not Pertinent Patient has suicidal ideation: No Patient has homicidal ideation: No - Past Medical History Cardiac Medical History: Reports: None Denies: Hx Coronary Artery Disease, Hx Heart Attack Pulmonary Medical History: Reports: None Denies: Hx Asthma, Hx Bronchitis, Hx COPD, Hx Pneumonia EENT Medical History: Reports: None Neurological Medical History: Reports: None. Denies: Hx Cerebrovascular Accident, Hx Seizures Endocrine Medical History: Reports: None Renal/ Medical History: Reports: None. Denies: Hx Peritoneal Dialysis Malignancy Medical History: Reports: None GI Medical History: Reports: None Musculoskeletal Medical History: Reports None, Denies Hx Arthritis Skin Medical History: Reports None Psychiatric Medical History: Reports: None Traumatic Medical History: Reports: None Infectious Medical History: Reports: None Surgical Hx: Negative Past Surgical History: Reports: None - Immunizations Hx Diphtheria, Pertussis, Tetanus Vaccination: No Review of Systems - Review of Systems Constitutional: No symptoms reported EENT: No symptoms reported Cardiovascular: No symptoms reported Respiratory: No symptoms reported Gastrointestinal: No symptoms reported Genitourinary: See HPI, Burning, Dysuria Female Genitourinary: No symptoms reported Musculoskeletal: No symptoms reported Skin: No symptoms reported Hematologic/Lymphatic: No symptoms reported Neurological/Psychological: No symptoms reported -: Yes All other systems reviewed and negative Physical Exam - Vital signs Vitals: Temp Pulse Resp BP Pulse Ox 98.4 F 89 16 139/89 H 100 02/06/19 17:17 02/06/19 17:17 02/06/19 17:17 02/06/19 17:17 02/06/19 17:17 Interpretation: Normal Course - Re-evaluation Re-evalutation: 02/06/19 23:05 Labs are grossly unremarkable other than early cystitis/UTI. Ultrasound shows a calcified left ovarian cyst could be endometriosis versus dermoid tumor, recommends follow-up ultrasound in 6 to 12 weeks; the patient was made aware of this. Will discharge the patient home with strict return precautions and follow-up with POLYGRAPH TECHNICIAN. All results were explained to and discussed with the patient, and all questions addressed and answered. The patient voices both understanding and agreeing with the plan. - Vital Signs Vital signs: Temp Pulse Resp BP Pulse Ox 98.2 F 68 18 134/95 H 100 02/06/19 23:22 02/06/19 23:22 02/06/19 23:22 02/06/19 23:22 02/06/19 23:22 - Laboratory Laboratory results interpreted by me: 02/06/19 18:50 Urine Urobilinogen 2.0 H - Diagnostic Test Radiology reviewed: Image reviewed, Reports reviewed Discharge - Discharge Clinical Impression: Left ovarian cyst Urinary tract infection Qualifiers: Urinary tract infection type: acute cystitis Hematuria presence: with hematuria Qualified Code(s): N30.01 - Acute cystitis with hematuria Condition: Good Disposition: HOME, SELF-CARE Instructions: Cephalexin ([facility]), Ob-Customer Acquisition Specialist Doctors, Urinary Tract Infection ([facility]) Additional Instructions: You have been evaluated in the Emergency Department for lower abdominal pain with burning and frequent urination. While here, you had urinalysis that revealed an early infection. He also had an ultrasound that revealed a calcified left ovarian cyst that could represent endometriosis; please follow-up with POLYGRAPH TECHNICIAN in the next 6 weeks to have this rechecked. It is now safe to be discharged home. Please follow-up with your primary physician as well as an POLYGRAPH TECHNICIAN as instructed. Return to the Emergency Department if you experience worsening pain, high fevers, vaginal discharge, or any other concerning symptoms. Prescriptions: Cephalexin Monohydrate [Keflex 500 mg Capsule] 500 mg PO Q6H 7 Days capsule Phenazopyridine HCl [Pyridium 100 Mg Tablet] 100 mg PO TID #9 tablet Print Language: Togolese
[2019-02-06] MEDS ORDERED: CEPHALEXIN 500 MG CAPSULE PO ONE (22:32)
[2019-02-06] MEDS ORDERED: PHENAZOPYRIDINE HCL 100 MG TABLET PO ONE (22:32)
[2019-02-06 23:22] VITALS: BP 134/95
== END 2019-02-06 23:24 | disposition home or self-care (01) ==
LOC: ER 16:35
DX: N30.01 Acute cystitis with hematuria (principal); N83.202 Unspecified ovarian cyst, left side; R30.0 Dysuria; R39.15 Urgency of urination; R35.0 Frequency of micturition
CPT/HCPCS: 87210; 81025; 81001; 87491; 87591; 76830; J3490; 99284

== ENCOUNTER 2019-06-01 15:47 | Emergency (ER) | payer SELFPAY ==
--- NOTE | 2019-06-01 17:14 | ER Document Report ---
ED Medical Screen (RME) - General Chief Complaint: Abdominal Pain Stated Complaint: ABDOMINAL PAIN Time Seen by Provider: 06/01/19 16:58 TRAVEL OUTSIDE OF THE [place] IN LAST 30 DAYS: No - HPI Notes: 06/01/19 17:13 29-year-old female to the emergency department with complaints of lower suprapubic abdominal pain and dark red blood from her vagina. She states that she is 2 weeks late on her period which is normally very regular. She states that she took a home test but it was negative. She denies any fevers or chills. She denies any chest pain or shortness of breath. She denies any lightheadedness or passing out. She denies any urinary symptoms. I performed a brief medical screening exam on the patient determined that she will need further evaluation by me inside provider. I have placed initial orders to help expedite her care. - Related Data Allergies/Adverse Reactions: No Known Allergies Allergy (Verified 06/01/19 16:58) Past Medical History - Social History Chew tobacco use (# tins/day): No Frequency of alcohol use: Occasional Drug Abuse: None Family history: Reviewed & Not Pertinent - Past Medical History Cardiac Medical History: Denies: Hx Coronary Artery Disease, Hx Heart Attack Pulmonary Medical History: Denies: Hx Asthma, Hx Bronchitis, Hx COPD, Hx Pneumonia Neurological Medical History: Denies: Hx Cerebrovascular Accident, Hx Seizures Renal/ Medical History: Denies: Hx Peritoneal Dialysis Musculoskeltal Medical History: Denies Hx Arthritis Past Surgical History: Reports: Hx Dilation and Curettage - Immunizations Hx Diphtheria, Pertussis, Tetanus Vaccination: No Physical Exam - Vital signs Vitals: Temp Pulse Resp BP Pulse Ox 98.4 F 103 H 16 150/98 H 99 06/01/19 15:54 06/01/19 15:54 06/01/19 15:54 06/01/19 15:54 06/01/19 15:54 Course - Vital Signs Vital signs: Temp Pulse Resp BP Pulse Ox 98.4 F 103 H 16 150/98 H 99 06/01/19 15:54 06/01/19 15:54 06/01/19 15:54 06/01/19 15:54 06/01/19 15:54
[2019-06-01 18:43] LABS: ABSOLUTE BASOPHILS # (AUTO) 0.1 10^3/uL (0.0-0.2); ABSOLUTE EOSINOPHILS # (AUTO) 0.1 10^3/uL (0.0-0.6); ABSOLUTE LYMPHOCYTES (AUTO) 2.6 10^3/uL (0.5-4.7); ABSOLUTE MONOCYTES (AUTO) 0.6 10^3/uL (0.1-1.4); ABSOLUTE NEUT (AUTO) 7.4 10^3/uL (1.7-8.2); BASOPHILS % (AUTO) 0.6 % (0-2); EOSINOPHILS % (AUTO) 0.8 % (0-6); HEMATOCRIT 44.1 % (36.0-47.0); HEMOGLOBIN 14.3 g/dL (12.0-15.5); LYMPHOCYTES % (AUTO) 24.4 % (13-45); MEAN CORPUSCULAR HEMOGLOBIN 27.2 pg (27.0-33.4); MEAN CORPUSCULAR HGB CONC 32.5 g/dL (32.0-36.0); MEAN CORPUSCULAR VOLUME 84 fl (80-97); MONOCYTES % (AUTO) 5.6 % (3-13); PLATELET COUNT 293 10^3/uL (150-450); RED BLOOD COUNT 5.26 10^6/uL (3.72-5.28); RED CELL DISTRIBUTION WIDTH 13.6 % (11.5-14.0); SEGMENTED NEUTROPHILS % (AUTO) 68.6 % (42-78); TOTAL CELLS COUNTED % (AUTO) 100 %; WHITE BLOOD COUNT 10.8 10^3/uL (4.0-10.5)
[2019-06-01 18:55] LABS: APPEARANCE,URINE SLIGHTLY-CLOUDY; BILIRUBIN,URINE NEGATIVE (NEGATIVE); COLOR,URINE YELLOW; GLUCOSE, URINE NEGATIVE (NEGATIVE); KETONES,URINE NEGATIVE (NEGATIVE); LEUKOCYTE ESTERASE,URINE TRACE (NEGATIVE); NITRITE,URINE NEGATIVE (NEGATIVE); PROTEIN,URINE NEGATIVE (NEGATIVE); URINE SPECIFIC GRAVITY 1.024
[2019-06-01 19:04] LABS: ALBUMIN 4.6 g/dL (3.5-5.0); ALKALINE PHOSPHATASE 60 U/L (38-126); ANION GAP 8 (5-19); ASPARTATE AMINO TRANSFERASE 19 U/L (14-36); BILIRUBIN,TOTAL 0.5 mg/dL (0.2-1.3); BLOOD UREA NITROGEN 12 mg/dL (7-20); CALCIUM 9.4 mg/dL (8.4-10.2); CARBON DIOXIDE 25 mmol/L (22-30); CHLORIDE 104 mmol/L (98-107); GLUCOSE 81 mg/dL (75-110); POTASSIUM 4.3 mmol/L (3.6-5.0); TOTAL PROTEIN 7.7 g/dL (6.3-8.2)
[2019-06-01 20:12] LABS: CHLAM PCR NOT DETECTED (NOT DETECT)
[2019-06-01] MEDS ORDERED: ACETAMINOPHEN 325 MG TABLET PO ONE (21:15)
--- NOTE | 2019-06-01 21:23 | RADIOLOGY REPORT (SQ) ---
US PELVIS EXAM DATE: 06/01/2019 7:48 PM SALES LEADER HISTORY: Pelvic pain. COMPARISON: 02/06/2019 TECHNIQUE: Grayscale, color Doppler, and spectral Doppler ultrasound images of the pelvis were obtained. FINDINGS: No intrauterine gestational sac is seen. The uterus measures 7.2 x 4.9 x 6.8 cm. The endometrium measures 1.6 cm in thickness. The cervix measures 2.7 cm in length and is closed. Nabothian cysts are seen in the cervix. The right ovary was not seen. The left ovary measures 2.8 cm and contains color Doppler blood flow. There is a 1.4 cm shadowing calcification in the left ovary, stable. No pelvic free fluid. IMPRESSION: No intrauterine . Correlate with hCG values and consider short-term follow-up ultrasound imaging.
--- NOTE | 2019-06-01 22:57 | ER Document Report ---
ED General - General Chief Complaint: Abdominal Pain Stated Complaint: ABDOMINAL PAIN Time Seen by Provider: 06/01/19 16:58 Primary Care Provider: JOSE LUNDY MD [ACTIVE STAFF] - Follow up tomorrow TRAVEL OUTSIDE OF THE [place] IN LAST 30 DAYS: No - HPI Onset: Just prior to arrival Onset/Duration: Gradual Quality of pain: Achy Severity: Moderate Context: 29 year old with complaints of lower abd pain and spotting earlier today and 2 weeks late on her menstral period and - preg test at home. 2 previous pregnancies with 1 spontaneous ab and 1 elective ab. No fever or chills. Midline pain in lower abd. No nausea or vomiting. No comorbidites. Exacerbated by: Denies Relieved by: Denies - Related Data Allergies/Adverse Reactions: No Known Allergies Allergy (Verified 06/01/19 16:58) Past Medical History - Social History Smoking Status: Never Smoker Chew tobacco use (# tins/day): No Frequency of alcohol use: Occasional Drug Abuse: None Family History: Reviewed & Not Pertinent Patient has suicidal ideation: No Patient has homicidal ideation: No - Past Medical History Cardiac Medical History: Denies: Hx Coronary Artery Disease, Hx Heart Attack Pulmonary Medical History: Denies: Hx Asthma, Hx Bronchitis, Hx COPD, Hx Pneumonia Neurological Medical History: Denies: Hx Cerebrovascular Accident, Hx Seizures Renal/ Medical History: Denies: Hx Peritoneal Dialysis Musculoskeletal Medical History: Denies Hx Arthritis Past Surgical History: Reports: Hx Dilation and Curettage - Immunizations Hx Diphtheria, Pertussis, Tetanus Vaccination: No Review of Systems - Review of Systems Constitutional: No symptoms reported EENT: No symptoms reported Cardiovascular: No symptoms reported Respiratory: No symptoms reported Gastrointestinal: See HPI, Abdominal pain Genitourinary: No symptoms reported Female Genitourinary: No symptoms reported Musculoskeletal: No symptoms reported Skin: No symptoms reported Hematologic/Lymphatic: No symptoms reported Neurological/Psychological: No symptoms reported Physical Exam - Vital signs Vitals: Temp Pulse Resp BP Pulse Ox 98.4 F 103 H 16 150/98 H 99 06/01/19 15:54 06/01/19 15:54 06/01/19 15:54 06/01/19 15:54 06/01/19 15:54 Interpretation: Normal - General General appearance: Appears well, Alert - HEENT Head: Normocephalic, Atraumatic Eyes: Normal Pupils: PERRL - Respiratory Respiratory status: No respiratory distress Chest status: Nontender Breath sounds: Normal Chest palpation: Normal - Cardiovascular Rhythm: Regular Heart sounds: Normal auscultation Murmur: No - Abdominal Inspection: Normal Distension: No distension Bowel sounds: Normal Tenderness: Nontender Organomegaly: No organomegaly - Back Back: Normal, Nontender - Extremities General upper extremity: Normal inspection, Nontender, Normal color, Normal ROM, Normal temperature General lower extremity: Normal inspection, Nontender, Normal color, Normal ROM, Normal temperature, Normal weight bearing. No: Anjali's sign - Neurological Neuro grossly intact: Yes Cognition: Normal Orientation: AAOx4 [place] Coma Scale Eye Opening: Spontaneous [place] Coma Scale Verbal: Oriented [place] Coma Scale Motor: Obeys Commands [place] Coma Scale Total: 15 Speech: Normal Motor strength normal: LUE, RUE, LLE, RLE Sensory: Normal - Psychological Associated symptoms: Normal affect, Normal mood - Skin Skin Temperature: Warm Skin Moisture: Dry Skin Color: Normal Course - Re-evaluation Re-evalutation: 06/01/19 22:54 MDM 29 year old with 3rd is here with + hcg mild midline supra pubic pain (Quant 400) and spotting. She is nontoxic here and sono here reassuring. Old blood bank shows B -, but at this stage of early feel there is no indication for rhogam. She has informed to return here immediately for increasing pain, dizziness or other concerns and educated on pelvic rest. She expressed understanding. - Vital Signs Vital signs: Temp Pulse Resp BP Pulse Ox 98.3 F 79 20 138/90 H 100 06/01/19 22:10 06/01/19 22:10 06/01/19 22:10 06/01/19 22:10 06/01/19 22:10 - Laboratory Result Diagrams: 06/01/19 18:00 06/01/19 18:00 Laboratory results interpreted by me: 06/01/19 06/01/19 06/01/19 18:00 18:00 18:00 WBC 10.8 H Creatinine 0.48 L Serum HCG, Qual POSITIVE H Beta HCG, Quant Urine Blood Urine Urobilinogen Ur Leukocyte Esterase Urine Ascorbic Acid 06/01/19 06/01/19 18:00 21:18 WBC Creatinine Serum HCG, Qual Beta HCG, Quant 414.96 H Urine Blood SMALL H Urine Urobilinogen 2.0 H Ur Leukocyte Esterase TRACE H Urine Ascorbic Acid 20 H - Diagnostic Test Radiology reviewed: Reports reviewed Discharge - Discharge Clinical Impression: Threatened Condition: Good Disposition: HOME, SELF-CARE Instructions: Abdominal Pain ([facility]), Acetaminophen, [facility] [facility], Threatened Miscarriage ([facility]) Additional Instructions: Pelvic rest as described. Please return here for any problems or any concerns. Take your tylenol as needed for pain. Recheck on Wednesday or blood test for the . Referrals: JOSE LUNDY MD [ACTIVE STAFF] - Follow up tomorrow
[2019-06-01 23:15] VITALS: BP 144/86
== END 2019-06-01 23:16 | disposition home or self-care (01) ==
LOC: ER 15:47
DX: O20.0 Threatened abortion (principal); R10.30 Lower abdominal pain, unspecified; Z3A.01 Less than 8 weeks gestation of pregnancy
CPT/HCPCS: 36415; 76817; 80053; 81001; 84702; 84703; 85025; 87491; 87591; 99284

== ENCOUNTER 2019-06-05 16:02 | Emergency (ER) | payer MEDICAID ==
--- NOTE | 2019-06-05 17:06 | ER Document Report ---
ED Medical Screen (RME) - General Chief Complaint: Abdominal Pain Stated Complaint: ABDOMINAL PAIN Time Seen by Provider: 06/05/19 17:04 Mode of Arrival: Ambulatory Information source: Patient Notes: 29-year-old female presented to ED for complaint of dark red vaginal bleeding. She states she was seen recently and her hCG was very low. It was like 416 on June 01. She was told to return to the emergency room for retesting but she started cramping and she did not come in and get her blood test. She will get a week check of her ex EKG today and be reevaluated as she is having cramping that shoots to the right side of her back. I have greeted and performed a rapid initial assessment of this patient. A comprehensive ED assessment and evaluation of the patient, analysis of test results and completion of medical decision making process will be conducted by an additional ED providers. TRAVEL OUTSIDE OF THE [place] IN LAST 30 DAYS: No - Related Data Allergies/Adverse Reactions: No Known Allergies Allergy (Verified 06/01/19 16:58) Past Medical History - Social History Family history: Reviewed & Not Pertinent - Past Medical History Cardiac Medical History: Denies: Hx Coronary Artery Disease, Hx Heart Attack Pulmonary Medical History: Denies: Hx Asthma, Hx Bronchitis, Hx COPD, Hx Pneumonia Neurological Medical History: Denies: Hx Cerebrovascular Accident, Hx Seizures Renal/ Medical History: Denies: Hx Peritoneal Dialysis Musculoskeltal Medical History: Denies Hx Arthritis Past Surgical History: Reports: Hx Dilation and Curettage - Immunizations Hx Diphtheria, Pertussis, Tetanus Vaccination: No Physical Exam - Vital signs Vitals: Temp Pulse Resp BP Pulse Ox 98.8 F 100 18 148/88 H 100 06/05/19 16:56 06/05/19 16:56 06/05/19 16:56 06/05/19 16:56 06/05/19 16:56 Course - Vital Signs Vital signs: Temp Pulse Resp BP Pulse Ox 98.8 F 100 18 148/88 H 100 06/05/19 16:56 06/05/19 16:56 06/05/19 16:56 06/05/19 16:56 06/05/19 16:56
[2019-06-05 18:34] LABS: APPEARANCE,URINE CLEAR; BILIRUBIN,URINE NEGATIVE (NEGATIVE); COLOR,URINE YELLOW; GLUCOSE, URINE NEGATIVE (NEGATIVE); KETONES,URINE TRACE mg/dL (NEGATIVE); PROTEIN,URINE 30 mg/dL (NEGATIVE); URINE SPECIFIC GRAVITY 1.027
[2019-06-05 18:39] LABS: ABSOLUTE LYMPHOCYTES (AUTO) 2.3 10^3/uL (0.5-4.7); ABSOLUTE MONOCYTES (AUTO) 0.7 10^3/uL (0.1-1.4); ABSOLUTE NEUT (AUTO) 7.4 10^3/uL (1.7-8.2); BASOPHILS % (AUTO) 0.2 % (0-2); EOSINOPHILS % (AUTO) 0.4 % (0-6); HEMATOCRIT 40.2 % (36.0-47.0); HEMOGLOBIN 13.4 g/dL (12.0-15.5); LYMPHOCYTES % (AUTO) 21.8 % (13-45); MEAN CORPUSCULAR HEMOGLOBIN 27.2 pg (27.0-33.4); MEAN CORPUSCULAR HGB CONC 33.4 g/dL (32.0-36.0); MEAN CORPUSCULAR VOLUME 82 fl (80-97); MONOCYTES % (AUTO) 6.7 % (3-13); PLATELET COUNT 326 10^3/uL (150-450); RED BLOOD COUNT 4.93 10^6/uL (3.72-5.28); RED CELL DISTRIBUTION WIDTH 13.2 % (11.5-14.0); SEGMENTED NEUTROPHILS % (AUTO) 70.9 % (42-78); TOTAL CELLS COUNTED % (AUTO) 100 %; WHITE BLOOD COUNT 10.4 10^3/uL (4.0-10.5)
[2019-06-05 18:46] LABS: ALBUMIN 4.5 g/dL (3.5-5.0); ALKALINE PHOSPHATASE 58 U/L (38-126); ANION GAP 11 (5-19); ASPARTATE AMINO TRANSFERASE 18 U/L (14-36); BILIRUBIN,DIRECT 0.2 mg/dL (0.0-0.4); BILIRUBIN,TOTAL 0.5 mg/dL (0.2-1.3); BLOOD UREA NITROGEN 11 mg/dL (7-20); CALCIUM 9.4 mg/dL (8.4-10.2); CARBON DIOXIDE 22 mmol/L (22-30); CHLORIDE 105 mmol/L (98-107); GLUCOSE 103 mg/dL (75-110); POTASSIUM 3.6 mmol/L (3.6-5.0); TOTAL PROTEIN 7.8 g/dL (6.3-8.2)
--- NOTE | 2019-06-05 19:09 | RADIOLOGY REPORT (SQ) ---
EXAM DESCRIPTION: U/S OB TRANSVAG W/DOPPLER COMPLETED DATE/TIME: 06/05/2019 6:42 pm REASON FOR STUDY: Vaginal bleeding, pelvic pain, shooting to the rig COMPARISON: OB ultrasound 06/01/2019 TECHNIQUE: Endovaginal static and realtime grayscale images acquired of the pelvis. Additional selec sol spectral and color Doppler images recorded. All images stored on PACs. bHCG: Not available today Was 416 on 06/01/2019 CLINICAL DATES: 04/18/2019 last menses according to the patient LIMITATIONS: None. FINDINGS: UTERUS: No visualized intrauterine . Uterus is 8 x 7 x 5 cm in size. RIGHT ADNEXA: In the right adnexa, 2 adjacent complex cystic structures are present, the larger of th lawrence is 3.7 x 3.2 cm in size with thin septations, with a thin rim of ovarian parenchyma with normal c olor flow. This likely represents a right ovarian cyst. Immediately adjacent, smaller thick walled complex cyst with low level internal echoes is present measuring about 18 mm in diameter. This could represent a corpus luteum. Ovarian or adnexal ectopic could not entirely be excluded. Th lawrence findings were discussed with the patient's attending provider Jacque in the emergency room, 1900 hours 06/05/2019. LEFT ADNEXA: Ovary not identified due to poor acoustical window. No adnexal free fluid. No adnexal masses. FREE FLUID: No cul-de-sac free fluid OTHER: No other significant finding. IMPRESSION: NO VISUALIZED INTRA- OR EXTRAUTERINE . ECTOPIC CANNOT BE EXCLUDED. FOLLOW-UP ULTRASOUND AND SERIAL BHCG LEVELS STRONGLY RECOMMENDED TO ACCURATELY ASSESS STATU S. TECHNICAL DOCUMENTATION: JOB ID: [id number] [employer]- All Rights Reserved Reading location - IP/workstation name: [email or web address]
--- NOTE | 2019-06-05 19:19 | ER Document Report ---
ED GI/ - General Chief Complaint: Abdominal Cramping Stated Complaint: ABDOMINAL PAIN Time Seen by Provider: 06/05/19 17:04 Primary Care Provider: ANNE MARIE HODGSON MD [ACTIVE STAFF] - Follow up as needed Mode of Arrival: Ambulatory Notes: Patient is a 29-year-old female who was a G3, P0 who presents emergency department with a chief complaint of vaginal bleeding. Patient reports she was due for her menstrual cycle on May 19. Patient reports she was late for her period but did started to have intermittent vaginal spotting on the . Patient reports that she has had vaginal bleeding since then. Patient reports on she has had some darker brown vaginal discharge when she wipes with toilet paper. Patient reports she is having some suprapubic cramping that is intermittent. Patient reports nausea without vomiting or diarrhea. Patient denies fever. TRAVEL OUTSIDE OF THE [place] IN LAST 30 DAYS: No - Related Data Allergies/Adverse Reactions: No Known Allergies Allergy (Verified 06/05/19 17:08) Past Medical History - General Information source: Patient - Social History Smoking Status: Never Smoker Frequency of alcohol use: Rare Drug Abuse: None Lives with: Family Family History: Reviewed & Not Pertinent Patient has suicidal ideation: No Patient has homicidal ideation: No - Past Medical History Cardiac Medical History: Reports: None Denies: Hx Coronary Artery Disease, Hx Heart Attack Pulmonary Medical History: Reports: None Denies: Hx Asthma, Hx Bronchitis, Hx COPD, Hx Pneumonia EENT Medical History: Reports: None Neurological Medical History: Reports: None. Denies: Hx Cerebrovascular Accident, Hx Seizures Endocrine Medical History: Reports: None Renal/ Medical History: Reports: None. Denies: Hx Peritoneal Dialysis Malignancy Medical History: Reports: None GI Medical History: Reports: None Musculoskeletal Medical History: Reports None, Denies Hx Arthritis Skin Medical History: Reports None Psychiatric Medical History: Reports: None Traumatic Medical History: Reports: None Infectious Medical History: Reports: None Past Surgical History: Reports: Hx Dilation and Curettage - Immunizations Hx Diphtheria, Pertussis, Tetanus Vaccination: No Review of Systems - Review of Systems Constitutional: No symptoms reported EENT: No symptoms reported Cardiovascular: No symptoms reported Respiratory: No symptoms reported Gastrointestinal: See HPI Genitourinary: See HPI Female Genitourinary: See HPI Musculoskeletal: No symptoms reported Skin: No symptoms reported Hematologic/Lymphatic: No symptoms reported Neurological/Psychological: No symptoms reported Physical Exam - Vital signs Vitals: Temp Pulse Resp BP Pulse Ox 98.8 F 100 18 148/88 H 100 06/05/19 16:56 06/05/19 16:56 06/05/19 16:56 06/05/19 16:56 06/05/19 16:56 - Notes Notes: GENERAL: Well-appearing, well-nourished and in no acute distress. HEAD: Atraumatic, normocephalic. EYES: Pupils equal round and reactive to light, extraocular movements intact, sclera anicteric, conjunctiva are normal. ENT: nares patent, oropharynx clear without exudates. Moist mucous membranes. NECK: Normal range of motion, supple without lymphadenopathy or JVD. LUNGS: Breath sounds clear to auscultation bilaterally and equal. No wheezes rales or rhonchi. HEART: Regular rate and rhythm without murmurs, rubs or gallops. ABDOMEN: Soft, mild suprapubic tenderness with palpation, normoactive bowel sounds. No guarding, no rebound. No masses appreciated. BACK: No cervical, thoracic, lumbar midline tenderness. No saddle anesthesia, normal distal neurovascular exam. GENITOURINARY: Deferred. EXTREMITIES: Normal range of motion, no pitting or edema. No clubbing or cyanosis. NEUROLOGICAL: Cranial nerves II through XII grossly intact. Normal speech, normal gait. PSYCH: Normal mood, normal affect. SKIN: Warm, Dry, normal turgor, no rashes or lesions noted. Course - Re-evaluation Re-evalutation: 06/05/19 19:57 I did discuss the quant results from today and from June 01 as well as the ultrasound results with Dr. Hodgson, open call FLEET ADMINISTRATIVE ASSISTANT. She does recommend giving the RhoGam here in the emergency department. She would like the patient to follow-up in her office or here in the emergency department in 48 hours for recheck of her ultrasound and quant. She was asked to return sooner if the patient develops any increased pain, vaginal bleeding or any new or worsening symptoms. 06/05/19 20:02 Patient's repeat vital signs do not show tachycardia, fever or hypotension. Patient is stable for discharge at this time. I did have a long discussion with the patient in regards to ectopic precautions and reiterated the importance of either coming to the emergency department or following up with [facility] in 48 hours which is Wednesday. 06/05/19 20:35 Patient reports he actually does have an appointment with [facility] on Wednesday. I told her if something were to happen and she could not make this appointment is extremely important to follow-up in the emergency department in 48 hours. Patient verbalized understanding. Patient will receive RhoGam and discharged home. - Vital Signs Vital signs: Temp Pulse Resp BP Pulse Ox 98.6 F 84 20 138/84 H 100 06/05/19 19:38 06/05/19 19:38 06/05/19 19:38 06/05/19 19:38 06/05/19 19:38 - Laboratory Result Diagrams: 06/05/19 18:04 06/05/19 18:04 Laboratory results interpreted by me: 06/05/19 06/05/19 18:00 18:04 Creatinine 0.48 L Beta HCG, Quant 2352.80 H Urine Protein 30 H Urine Ketones TRACE H Urine Urobilinogen 4.0 H 06/05/19 19:19 Laboratory 06/05/19 06/05/19 06/05/19 18:00 18:04 18:04 WBC 10.4 RBC 4.93 Hgb 13.4 Hct 40.2 MCV 82 MCH 27.2 MCHC 33.4 RDW 13.2 Plt Count 326 Lymph % (Auto) 21.8 [place] % (Auto) 6.7 Eos % (Auto) 0.4 Baso % (Auto) 0.2 Absolute Neuts (auto) 7.4 Absolute Lymphs (auto) 2.3 Absolute Monos (auto) 0.7 Absolute Eos (auto) 0.0 Absolute Basos (auto) 0.0 Seg Neutrophils % 70.9 Sodium 137.8 Potassium 3.6 Chloride 105 Carbon Dioxide 22 Anion Gap 11 BUN 11 Creatinine 0.48 L Est GFR ( Amer) > 60 Est GFR (MDRD) Non-Af > 60 Glucose 103 Calcium 9.4 Total Bilirubin 0.5 Direct Bilirubin 0.2 Neonat Total Bilirubin Not Reportable Neonat Direct Bilirubin Not Reportable Neonat Indirect Bili Not Reportable AST 18 ALT 17 Alkaline Phosphatase 58 Total Protein 7.8 Albumin 4.5 Beta HCG, Quant 2352.80 H Total Beta HCG POSITIVE Urine Color YELLOW Urine Appearance CLEAR Urine pH 6.0 Ur Specific [place] 1.027 Urine Protein 30 H Urine Glucose (UA) NEGATIVE Urine Ketones TRACE H Urine Blood NEGATIVE Urine Nitrite (Reflex) NEGATIVE Urine Bilirubin NEGATIVE Urine Urobilinogen 4.0 H Leukocyte Esterase Rfl NEGATIVE Urine RBC (Auto) 1 Urine Bacteria (Auto) TRACE Urine WBC (Reflex) 5 Squamous Epi Cells Auto 1 Urine Mucus (Auto) MANY Urine Ascorbic Acid NEGATIVE Blood Type 06/05/19 18:04 WBC RBC Hgb Hct MCV MCH MCHC RDW Plt Count Lymph % (Auto) [place] % (Auto) Eos % (Auto) Baso % (Auto) Absolute Neuts (auto) Absolute Lymphs (auto) Absolute Monos (auto) Absolute Eos (auto) Absolute Basos (auto) Seg Neutrophils % Sodium Potassium Chloride Carbon Dioxide Anion Gap BUN Creatinine Est GFR ( Amer) Est GFR (MDRD) Non-Af Glucose Calcium Total Bilirubin Direct Bilirubin Neonat Total Bilirubin Neonat Direct Bilirubin Neonat Indirect Bili AST ALT Alkaline Phosphatase Total Protein Albumin Beta HCG, Quant Total Beta HCG Urine Color Urine Appearance Urine pH Ur Specific [place] Urine Protein Urine Glucose (UA) Urine Ketones Urine Blood Urine Nitrite (Reflex) Urine Bilirubin Urine Urobilinogen Leukocyte Esterase Rfl Urine RBC (Auto) Urine Bacteria (Auto) Urine WBC (Reflex) Squamous Epi Cells Auto Urine Mucus (Auto) Urine Ascorbic Acid Blood Type B NEGATIVE - Diagnostic Test Radiology reviewed: Reports reviewed Radiology results interpreted by me: 06/05/19 19:19 Transvaginal US 06/05/19 17:07 IMPRESSION: NO VISUALIZED INTRA- OR EXTRAUTERINE . ECTOPIC CANNOT BE EXCLUDED. FOLLOW-UP ULTRASOUND AND SERIAL BHCG LEVELS STRONGLY RECOMMENDED TO ACCURATELY ASSESS STATUS. Discharge - Discharge Clinical Impression: Vaginal bleeding Qualifiers: Weeks of gestation: less than 8 weeks Qualified Code(s): Z3A.01 - Less than 8 weeks gestation of Condition: Stable Disposition: HOME, SELF-CARE Additional Instructions: *Today was seen in the emergency department for vaginal bleeding. We did repeat your quant, which is the hormone in your blood. This was 414 on June 01 and today it was 2300 today. Although there was no intrauterine sac I did speak with our on-call FLEET ADMINISTRATIVE ASSISTANT Dr. Hodgson who would like you to return to the emergency department or [facility] in 2 days which is 48 hours to have a repeat ultrasound. Please do this on Wednesday if possible. Please call the office tomorrow to schedule an appointment. *In the meantime if you develop any severe pain, lightheadedness, dizziness, fever increased vaginal bleeding, abdominal pain or swelling or any new or worsening symptoms please return to the emergency department immediately. You can take Tylenol as needed for your pain. Do not take ibuprofen as you are po tentially . Ectopic Precaution An ultrasound was done and the was not seen in either the fallopian tubes or the uterus. It's possible you already had a miscarriage or that it's too early in your to see the fetus in the uterus. But the other possibility is that you have an ectopic (tubal) . Usually if an ectopic is too small to see, it's safe for you to go home. You should have a repeat quantitative HCG blood test. The level doubles every two days in normal pregnancies. If the level is falling rapidly, it means you've had a miscarriage. A repeat ultrasound in about a week may show the . If an ectopic is identified early, it can sometimes be treated without surgery. Return at once if you develop severe, sharp, and sudden pain in the lower abdomen, pain in the shoulder area, severe lightheadedness or fainting, or heavy bleeding (more than menstrual bleeding). Referrals: ANNE MARIE HODGSON MD [ACTIVE STAFF] - Follow up as needed
[2019-06-05 21:54] VITALS: BP 140/87
== END 2019-06-05 21:40 | disposition home or self-care (01) ==
LOC: ER 16:02
DX: O20.9 Hemorrhage in early pregnancy, unspecified (principal); Z3A.01 Less than 8 weeks gestation of pregnancy
CPT/HCPCS: 99284; 86900; 86901; 36415; 86850; 84702; 85025; 80053; 81001; 76817; 93976; J2790

== ENCOUNTER 2019-06-07 10:20 | Emergency (ER) | payer SELFPAY ==
--- NOTE | 2019-06-07 12:06 | ER Document Report ---
ED Medical Screen (RME) - General Chief Complaint: Vaginal Bleeding Stated Complaint: VAGINAL BLEEDING Time Seen by Provider: 06/07/19 12:00 Notes: HPI: 29-year-old female presenting again to the emergency department for repeat beta-hCG. Patient states that she was seen 2 days ago for vaginal bleeding in the setting of does not know how far along she is. States that they did an ultrasound that did not see an intrauterine . She attempted to follow-up with [facility] but they would not see her because her Medicaid was not approved. She states they told her to come back to the emergency department to have the repeat blood test. Patient states she still has some suprapubic tenderness, states that she only has some bleeding when she wipes now and has significantly improved. No fever nausea vomiting I have greeted and performed a rapid initial assessment of this patient. A comprehensive ED assessment and evaluation of the patient, analysis of test results and completion of the medical decision making process will be conducted by additional ED providers PHYSICAL EXAMINATION: GENERAL: Well-appearing, well-nourished and in no acute distress. HEAD: Atraumatic, normocephalic. EYES: sclera anicteric, conjunctiva are normal. ENT: Moist mucous membranes. NECK: Normal range of motion LUNGS: Normal work of breathing, clear to auscultation HEART: 2+ radial pulses bilaterally, regular rate and rhythm ABD: limited by positioning for exam in triage. Morbidly obese, mild suprapubic tenderness on palpation, exam deferred in triage EXTREMITIES: no pitting or edema. No cyanosis. NEUROLOGICAL: No focal neurological deficits. Moves all extremities spontaneously and on command. PSYCH: Normal mood, normal affect. SKIN: Warm, Dry, normal turgor, no rashes or lesions noted. TRAVEL OUTSIDE OF THE [place] IN LAST 30 DAYS: No - Related Data Allergies/Adverse Reactions: No Known Allergies Allergy (Verified 06/05/19 17:08) Past Medical History - Social History Frequency of alcohol use: None Family history: Reviewed & Not Pertinent - Past Medical History Cardiac Medical History: Denies: Hx Coronary Artery Disease, Hx Heart Attack Pulmonary Medical History: Denies: Hx Asthma, Hx Bronchitis, Hx COPD, Hx Pneumonia Neurological Medical History: Denies: Hx Cerebrovascular Accident, Hx Seizures Renal/ Medical History: Denies: Hx Peritoneal Dialysis Musculoskeltal Medical History: Denies Hx Arthritis Past Surgical History: Reports: Hx Dilation and Curettage - Immunizations Hx Diphtheria, Pertussis, Tetanus Vaccination: No Physical Exam - Vital signs Vitals: Temp Pulse Resp BP Pulse Ox 98.5 F 85 18 149/83 H 100 06/07/19 11:54 06/07/19 11:54 06/07/19 11:54 06/07/19 11:54 06/07/19 11:54 Course - Vital Signs Vital signs: Temp Pulse Resp BP Pulse Ox 98.5 F 85 18 149/83 H 100 06/07/19 11:54 06/07/19 11:54 06/07/19 11:54 06/07/19 11:54 06/07/19 11:54
--- NOTE | 2019-06-07 17:03 | ER Document Report ---
ED General - General Chief Complaint: Vaginal Bleeding Stated Complaint: VAGINAL BLEEDING Time Seen by Provider: 06/07/19 12:00 Notes: Patient is a 29-year-old female who is at unknown weeks gestation who presents for her third visit to the emergency department in relation to a ongoing gestation. She states she was seen here twice over the past couple of weeks for repeat hCG testing. On her first visit she had a positive t est that was low, IUP could not be evaluated. Patient was encouraged to return for repeat hCG testing and follow-up ultrasound. She had that done a few days ago, her hCG did double but ultrasound was still inconclusive. She returns today for reevaluation. She admits to ongoing lower abdominal discomfort. States that she has spotting but only when she wipes, none otherwise. Passing no clots or tissue. Denies any severe abdominal pain, fever, nausea, vomiting, diarrhea or other vaginal discharge. No urinary complaints. TRAVEL OUTSIDE OF THE [place] IN LAST 30 DAYS: No - Related Data Allergies/Adverse Reactions: No Known Allergies Allergy (Verified 06/05/19 17:08) Past Medical History - Social History Smoking Status: Never Smoker Frequency of alcohol use: None Family History: Reviewed & Not Pertinent Patient has suicidal ideation: No Patient has homicidal ideation: No - Past Medical History Cardiac Medical History: Denies: Hx Coronary Artery Disease, Hx Heart Attack Pulmonary Medical History: Denies: Hx Asthma, Hx Bronchitis, Hx COPD, Hx Pneumonia Neurological Medical History: Denies: Hx Cerebrovascular Accident, Hx Seizures Renal/ Medical History: Denies: Hx Peritoneal Dialysis Musculoskeletal Medical History: Denies Hx Arthritis Past Surgical History: Reports: Hx Dilation and Curettage - Immunizations Hx Diphtheria, Pertussis, Tetanus Vaccination: No Review of Systems - Review of Systems Gastrointestinal: Abdominal pain Female Genitourinary: , Vaginal bleeding -: Yes All other systems reviewed and negative Physical Exam - Vital signs Vitals: Temp Pulse Resp BP Pulse Ox 98.5 F 85 18 149/83 H 100 06/07/19 11:54 06/07/19 11:54 06/07/19 11:54 06/07/19 11:54 06/07/19 11:54 - General General appearance: Appears well, Alert - Respiratory Respiratory status: No respiratory distress Chest status: Nontender Breath sounds: Normal Chest palpation: Normal - Cardiovascular Rhythm: Regular Heart sounds: Normal auscultation - Abdominal Inspection: Normal Distension: No distension Bowel sounds: Normal Tenderness: Nontender Organomegaly: No organomegaly - Back Back: Normal, Nontender - Neurological Neuro grossly intact: Yes Cognition: Normal Orientation: AAOx4 Amparo Coma Scale Eye Opening: Spontaneous [place] Coma Scale Verbal: Oriented [place] Coma Scale Motor: Obeys Commands [place] Coma Scale Total: 15 Speech: Normal - Psychological Associated symptoms: Normal affect, Normal mood - Skin Skin Temperature: Warm Skin Moisture: Dry Skin Color: Normal Course - Re-evaluation Re-evalutation: 06/07/19 19:13 Ultrasound showing a possible IUP at this time but also still showing the right adnexal cystlike structure. Radiologist notes that it is possible that the patient has gestation at both the right adnexa as well as in the IUP. Patient's quant continues to progress and elevate normally consistent with a viable however it is unclear whether or not she has a viable plus ectopic or a viable plus a cyst or other structure in the right adnexa. She does not have an E LEARNING MANAGER, we will refer her with the hopes of getting her in with in no less than 1 week for repeat ultrasound, repeat quant and evaluation by E LEARNING MANAGER. I counseled the patient if she could not get an or if she should have any new, persistent or worsening symptoms she should report here immediately or to the nearest ER immediately. She verbalized understood and agreed. - Vital Signs Vital signs: Temp Pulse Resp BP Pulse Ox 98.5 F 85 18 149/83 H 100 06/07/19 11:54 06/07/19 11:54 06/07/19 11:54 06/07/19 11:54 06/07/19 11:54 - Laboratory Laboratory results interpreted by me: 06/07/19 12:46 Beta HCG, Quant 5316.30 H Discharge - Discharge Clinical Impression: possible ectopic, Abdominal pain during intrauterine , Vaginal bleeding, Threatened Disposition: HOME, SELF-CARE Instructions: Ob-Nursing Student Doctors Additional Instructions: Please follow-up with the E LEARNING MANAGER as soon as possible outpatient for continued monitoring and care. Please return here or any ER immediately with any new, persistent or worsening symptoms. Referrals: DAVID RAMSAY DO [ACTIVE STAFF] - Follow up as needed
--- NOTE | 2019-06-07 18:35 | RADIOLOGY REPORT (SQ) ---
EXAM DESCRIPTION: U/S OB TRANSVAGINAL W/O DOP COMPLETED DATE/TIME: 06/07/2019 6:20 pm REASON FOR STUDY: ? ectopic COMPARISON: 06/05/2019 and 06/01/2019. TECHNIQUE: Transvaginal static and realtime grayscale images acquired of the pelvis. Additional sincere cted spectral and color Doppler images recorded. All images stored on PACs. CLINICAL AGE: 7 week 1 day. bHC,003 and 16. LIMITATIONS: None. FINDINGS: UTERUS: No masses. No anomalies. GESTATIONAL SAC: Normal shape. Measurements correspond to a 5 week 2 day gestational age. YOLK SAC: No. POLE: None present. RIGHT ADNEXA: Normal ovary with normal vascular flow. No adnexal free fluid. Paraovarian cyst measuring 2.7 x 2.9 cm. LEFT ADNEXA: Normal ovary with normal vascular flow. No adnexal free fluid. No adnexal masses. FREE FLUID: None. OTHER: No other significant finding. IMPRESSION: POSSIBLE EARLY INTRAUTERINE WITH AN EARLY GESTATIONAL SAC IN THE ENDOMETRIAL C AVITY. AGAIN SEEN IS A COMPLEX CYSTIC LESION IN THE RIGHT ADNEXAL REGION. A COEXISTENT ECTOPIC PREG YIN SIMULTANEOUS WITH AN INTRAUTERINE WOULD BE UNUSUAL BUT NOT ENTIRELY EXCLUDED. BHCG LEVEL APPROPRIATE FOR ENDOMETRIAL FINDINGS. CONSIDER F/U BHCG AND/OR ULTRASOUND FOR VERIFICATION AND TO EXCLUDE ECTOPIC . Trimester of : First trimester - 0 to 13 weeks. TECHNICAL DOCUMENTATION: JOB ID: [id number] [employer]- All Rights Reserved Reading location - IP/workstation name: [email or web address]
[2019-06-07 19:24] VITALS: BP 121/74
== END 2019-06-07 19:26 | disposition home or self-care (01) ==
LOC: ER 10:20
DX: O20.0 Threatened abortion (principal); O26.891 Other specified pregnancy related conditions, first trimester; R10.30 Lower abdominal pain, unspecified; Z3A.00 Weeks of gestation of pregnancy not specified
CPT/HCPCS: 36415; 76817; 84702; 99284

== ENCOUNTER 2019-08-20 01:31 | Emergency (ER) | payer MEDICAID ==
[2019-08-20] MEDS ORDERED: METHYLPREDNISOLONE INJ 125 MG/2 ML SDV ONE (01:41)
[2019-08-20] MEDS ORDERED: DIPHENHYDRAMINE HCL 50 MG/ML VIAL ONE (01:41)
[2019-08-20] MEDS ORDERED: FAMOTIDINE INJ/PF 20 MG/2 ML SDV IV ONE ×2 (01:41→01:42)
[2019-08-20] MEDS ORDERED: METHYLPREDNISOLONE INJ 125 MG/2 ML SDV IV ONE (01:41)
[2019-08-20] MEDS ORDERED: DIPHENHYDRAMINE HCL 50 MG/ML VIAL IV ONE ×2 (01:41→03:17)
[2019-08-20] MEDS ORDERED: PREDNISONE 20 MG TABLET PO ONE (01:46)
[2019-08-20] MEDS ORDERED: PREDNISONE 20 MG TABLET ONE (01:47)
--- NOTE | 2019-08-20 02:38 | ER Document Report ---
Entered by JAYLON CAI SCRIBE 08/20/19 0142 Acting as scribe for:LACEY JUAREZ IV, MD ED Allergic Reaction - General Chief Complaint: Allergic Reaction Stated Complaint: POSSIBLE HIVES Time Seen by Provider: 08/20/19 01:40 Primary Care Provider: MILO CALLAWAY MD [Primary Care Provider] - Follow up as needed Mode of Arrival: Ambulatory Information source: Patient Notes: This 29 year old female patient, currently x4 months with triplets, presents to the ED today with complaints of a possible allergic reaction for the past couple of nights. Patient states that she has been breaking out in hives on her bilateral upper and lower extremities, chest and back in the evenings. She reports that the hives cleared up yesterday morning, but returned tonight, so she decided to come to the ED. According to ED nurse, patient states that she started using cocoa butter last week and would use it every night after her shower. She denies using any new detergent or soaps. Denies dyspnea, shortness of breath, or stridor. TRAVEL OUTSIDE OF THE [place] IN LAST 30 DAYS: No - Related Data Allergies/Adverse Reactions: No Known Allergies Allergy (Verified 08/20/19 01:49) Past Medical History - General Information source: Patient - Social History Smoking Status: Unknown if Ever Smoked Cigarette use (# per day): No Chew tobacco use (# tins/day): No Smoking Education Provided: No Lives with: Family Family History: Reviewed & Not Pertinent - Past Medical History Cardiac Medical History: Past Surgical History: Reports: Hx Dilation and Curettage - Immunizations Hx Diphtheria, Pertussis, Tetanus Vaccination: No Review of Systems - Review of Systems Constitutional: No symptoms reported EENT: No symptoms reported Cardiovascular: See HPI. denies: Dyspnea Respiratory: See HPI. denies: Short of breath, Stridor Gastrointestinal: No symptoms reported Genitourinary: No symptoms reported Female Genitourinary: See HPI, - x4 months with triplets Musculoskeletal: No symptoms reported Skin: See HPI, Other - Hives Hematologic/Lymphatic: No symptoms reported Neurological/Psychological: No symptoms reported -: Yes All other systems reviewed and negative Physical Exam - Vital signs Vitals: Pulse Ox 99 08/20/19 01:37 - General General appearance: Alert - HEENT Head: Normocephalic, Atraumatic Eyes: Normal Pupils: PERRL - Respiratory Respiratory status: No respiratory distress Chest status: Nontender Breath sounds: Normal. No: Stridor Chest palpation: Normal - Cardiovascular Rhythm: Regular Heart sounds: Normal auscultation Murmur: No Friction rub: No Gallop: None auscultated - Abdominal Inspection: Gravid female Distension: Distended Bowel sounds: Normal Tenderness: Nontender Organomegaly: No organomegaly - Back Back: Normal, Nontender - Extremities General upper extremity: Other - Hives right and left UE General lower extremity: Other - Hives right and left LE - Neurological Neuro grossly intact: Yes - Psychological Associated symptoms: Normal affect, Normal mood - Skin Skin Temperature: Warm Skin Moisture: Dry Skin Color: Normal Skin irregularity: other - Hives to bilateral upper and lower extremities Course - Re-evaluation Re-evalutation: 08/20/19 04:17 Patient's itching is starting to decrease a little. Rash is also decreasing. Patient was advised not to continue using the cocoa butter lotion she has recently started on. All questions were answered prior to discharge. Emergency signs and symptoms, reasons to return to the emergency department discussed with patient. - Vital Signs Vital signs: Temp Pulse Resp BP Pulse Ox 98.5 F 20 114/75 99 08/20/19 01:44 08/20/19 03:01 08/20/19 03:01 08/20/19 03:01 Discharge - Discharge Clinical Impression: Acute allergic reaction Qualifiers: Encounter type: initial encounter Qualified Code(s): T78.40XA - Allergy, unspecified, initial encounter Condition: Good Disposition: HOME, SELF-CARE Additional Instructions: Return to the Emergency Department without delay if any worse. HOME CARE INSTRUCTIONS & INFORMATION: Thank you for choosing us for your medical needs. We hope you're satisfied with the care you received. After you leave, you must properly care for your problem and, at the same time, observe its progress. Any condition can change. Some illnesses can change rapidly over hours or days. If your condition worsens, return to the Emergency Department or see your physician promptly. ABOUT YOUR X-RAYS AND EKG'S: If you had an EKG or X-rays taken, they have been read by the Emergency Physician. The X-rays and EKG's will also be read by a Radiologist or Esthetician/Spa Coordinator within 24 hours. If discrepancies are noted, you will be notified by telephone. Please be certain the ED has a correct telephone number & address where you can be reached. Also, realize that some fractures or abnormalities do not show up on initial X-rays. If your symptoms continue, see your physician. ABOUT YOUR LABORATORY TEST: If you had laboratory tests, the results have been reviewed by the Emergency Physician. Some test results (for example cultures) may not be available for several days. You will be contacted if any test result shows you need additional treatment. Please be certain the ED has a correct telephone number and address where you can be reached. ABOUT YOUR MEDICATIONS: You will receive instructions on how to take your medicine on the prescription label you receive. Additional information may be provided by the Pharmacy. If you have questions afterwards, call the ED for clarification or further instructions. Some prescribed medications may cause drowsiness. Do not perform tasks such as driving a car or operating machinery without consulting your Pharmacist. If you feel you need a refill of pain medication, your condition will need re-evaluation. Please do not call for a refill of any medication. ABOUT YOUR SIGNATURE: Signature of this document acknowledges to followin. Understanding that you received emergency treatment and that you may be released before al medical problems are known or treated. Please be certain the ED has a correct phone number & address where you can be reached. 2. Acknowledgement that you will arrange for follow-up care as recommended. 3. Authorization for the Emergency Physician to provide information to your follow-up Physician in order to maximize your care. AT ANY TIME, IF YOUR SYMPTOMS CHANGE SIGNIFICANTLY OR WORSEN OR YOU DEVELOP NEW SYMPTOMS, RETURN TO THE EMERGENCY DEPARTMENT IMMEDIATELY FOR RE-EVALUATION. OUR GOAL IS TO PROVIDE EXCELLENT MEDICAL CARE! WE HOPE THAT WE HAVE MET YOUR EXPECTATIONS DURING YOUR EMERGENCY DEPARTMENT VISIT AND THAT YOU FEEL YOU HAVE RECEIVED EXCELLENT CARE! Allergic Contact Dermatitis You have a allergic reaction, called contact dermatitis. This an allergy to something in contact with your skin. Poison glo, jewelry, soaps, perfumes, and chemicals are common causes. Typically, an itchy rash develops a few days after the exposure. If the reaction is severe, blisters may develop. Two to three weeks may be required for healing. Generally, treatment consists of: (1) a thorough washing with soap to remove the offending substance, (2) application of a cortisone cream, and (3) antihistamines for itching. If the reaction is particularly severe, further measures may be required. These can include soaking in epsom salts or Tiffanie's solution, and oral cortisone medications. Call the doctor if the rash worsens despite treatment, or if signs of infe ction occur such as spreading redness, red streaks, swollen glands, swelling, or fever. Referrals: MILO CALLAWAY MD [Primary Care Provider] - 08/21/19 I personally performed the services described in the documentation, reviewed and edited the documentation which was dictated to the scribe in my presence, and it accurately records my words and actions.
[2019-08-20 04:41] VITALS: BP 143/83
== END 2019-08-20 04:41 | disposition home or self-care (01) ==
LOC: ER 01:31
DX: O26.891 Other specified pregnancy related conditions, first trimester (principal); T78.40XA Allergy, unspecified, initial encounter; X58.XXXA Exposure to other specified factors, initial encounter; O30.101 Triplet pregnancy, unspecified number of placenta and unspecified number of amniotic sacs, first trimester; Z3A.12 12 weeks gestation of pregnancy
CPT/HCPCS: 96376; 99283; 96374; 96375; J1200; J7512; S0028

== ENCOUNTER 2019-08-24 12:36 | Emergency (ER) | payer MEDICAID ==
[2019-08-24 12:55] VITALS: BP 130/80
[2019-08-24] MEDS ORDERED: DIPHENHYDRAMINE HCL 50 MG CAPSULE PO ONE (13:04)
[2019-08-24] MEDS ORDERED: FAMOTIDINE 20 MG TABLET PO ONE (13:04)
[2019-08-24] MEDS ORDERED: PREDNISONE 20 MG TABLET PO ONE (13:04)
--- NOTE | 2019-08-24 13:04 | ER Document Report ---
ED Skin Rash/Insect Bite/Abscs - General Chief Complaint: Rash Stated Complaint: RASH Time Seen by Provider: 08/24/19 12:52 Primary Care Provider: MILO CALLAWAY MD [Primary Care Provider] - Follow up as needed Mode of Arrival: Ambulatory Information source: Patient Notes: 29-year-old female presented to ED for hives generalized. She states she has had them for the 2 weeks ago and then they got better and then they started again 2 days ago she was seen here and then she went to her health medicine at [facility] and then came today to the emergency room again because the itching and hives are worse. I did call [facility] and spoke with Dr. Alex he stated that it would be okay to give her prednisone and Pepcid with her Benadryl. I have prescribed her 40 mg of prednisone today and for 5 days as well as Pepcid 20 mg today and twice daily for the next 5 days. She is also to take the Benadryl. I have instructed her please to let her health medicine doctor know immediately that she is on prednisone and do they want her to continue taking it. Patient is 5 months with triplets. TRAVEL OUTSIDE OF THE [place] IN LAST 30 DAYS: No - HPI Patient complains to provider of: Other - Allergic urticaria Onset: Other - First 2 weeks ago and then again 2 days ago Onset/Duration: Intermittent, Worse Quality of pain: No pain Severity: None Pain Level: Denies Skin Character: Urticarial - Hives Quality of rash: Itchy Identify cause: No Exacerbated by: Denies Relieved by: Denies Similar symptoms previously: Yes Recently seen / treated by doctor: Yes - Related Data Allergies/Adverse Reactions: No Known Allergies Allergy (Verified 08/20/19 01:49) Home Medications: Folic Acid. Vitamins Past Medical History - General Information source: Patient - Social History Smoking Status: Never Smoker Frequency of alcohol use: None Drug Abuse: None Lives with: Family Family History: Reviewed & Not Pertinent Patient has suicidal ideation: No Patient has homicidal ideation: No - Past Medical History Cardiac Medical History: Reports: None Pulmonary Medical History: Reports: None EENT Medical History: Reports: None Neurological Medical History: Reports: None Endocrine Medical History: Reports: None Renal/ Medical History: Reports: None Malignancy Medical History: Reports: None GI Medical History: Reports: None Musculoskeletal Medical History: Reports None Skin Medical History: Reports None Psychiatric Medical History: Reports: None Traumatic Medical History: Reports: None Infectious Medical History: Reports: None Past Surgical History: Reports: Hx Dilation and Curettage - Immunizations Hx Diphtheria, Pertussis, Tetanus Vaccination: No Review of Systems - Review of Systems Constitutional: No symptoms reported EENT: No symptoms reported Cardiovascular: No symptoms reported Respiratory: No symptoms reported Gastrointestinal: No symptoms reported Genitourinary: No symptoms reported Female Genitourinary: No symptoms reported Musculoskeletal: No symptoms reported Skin: Rash - Urticaria hives Hematologic/Lymphatic: No symptoms reported Neurological/Psychological: No symptoms reported -: Yes All other systems reviewed and negative Physical Exam - Vital signs Vitals: Temp Pulse Resp BP Pulse Ox 99.1 F 102 H 18 130/80 H 100 08/24/19 12:52 08/24/19 12:52 08/24/19 12:52 08/24/19 12:52 08/24/19 12:52 Interpretation: Normal - General General appearance: Appears well, Alert - HEENT Head: Normocephalic, Atraumatic Eyes: Normal Pupils: PERRL Ears: Normal External canal: Normal Tympanic membrane: Normal Sinus: Normal Nasal: Normal Mouth/Lips: Normal Mucous membranes: Normal Pharynx: Normal Neck: Normal - Respiratory Respiratory status: No respiratory distress. No: Respiratory distress Chest status: Nontender. No: Tender Breath sounds: Normal. No: Decreased air movement, Nonproductive cough, Productive cough, Rales, Rhonchi, Stridor, Wheezing Chest palpation: Normal - Cardiovascular Rhythm: Regular Heart sounds: Normal auscultation Murmur: No - Abdominal Inspection: Gravid female - 5 months with triplets Distension: No distension Bowel sounds: Normal Tenderness: Nontender Organomegaly: No organomegaly - Back Back: Normal, Nontender - Extremities General upper extremity: Normal inspection, Nontender, Normal color, Normal ROM, Normal temperature General lower extremity: Normal inspection, Nontender, Normal color, Normal ROM, Normal temperature, Normal weight bearing. No: Anjali's sign - Neurological Neuro grossly intact: Yes Cognition: Normal Orientation: AAOx4 Amparo Coma Scale Eye Opening: Spontaneous [place] Coma Scale Verbal: Oriented [place] Coma Scale Motor: Obeys Commands [place] Coma Scale Total: 15 Speech: Normal Motor strength normal: LUE, RUE, LLE, RLE Sensory: Normal - Psychological Associated symptoms: Normal affect, Normal mood - Skin Skin Temperature: Warm Skin Moisture: Dry Skin Color: Normal Location of irregularity: Generalized Character of irregularity: Erythematous - Hives, Urticarial Irregularity with: Swelling, Tenderness Course - Vital Signs Vital signs: Temp Pulse Resp BP Pulse Ox 99.1 F 102 H 18 130/80 H 100 08/24/19 12:54 08/24/19 12:52 08/24/19 12:52 08/24/19 12:52 08/24/19 12:52 Discharge - Discharge Clinical Impression: Acute allergic reaction Qualifiers: Encounter type: subsequent encounter Qualified Code(s): T78.40XD - Allergy, unspecified, subsequent encounter Condition: Stable Disposition: HOME, SELF-CARE Additional Instructions: ACUTE ALLERGIC REACTION: Your symptoms are due to an allergic reaction. Allergy can cause hives, swelling of the hands, feet, and face, hoarseness, and difficulty swallowing or breathing. It may be due to exposure to medication, animal dander, foods, infection, or insect bites. Medication is a common cause, even when prior use of this same medication caused no problems. Acute treatment may include adrenalin and antihistamines. Usually, the specific allergic agent can't be identified unless repeated episodes occur. Home treatment includes the following: (1) Stop any suspicious medications. This will be discussed with you. (2) Oral antihistamines for the next four to five days. Example, diphenhydramine (Benadryl) every four hours. (3) You may also use cimetidine (Tagamet), ranitidine (Zantac), or famotidine (Pepcid) every four hours if diphenhydramine is not controlling itching and hives. (4) Avoid aspirin until the hives completely disappear. (5) Avoid hot baths or showers until the hives are completely gone. Call the doctor if faintness, difficulty swallowing, tightness in the chest, or wheezing occurs. STEROID MEDICATION: You have been given a medicine of the cortisone/steroid class. This medication is used to control inflammation or allergy. It is usually only given for a short period of time, until the acute process subsides. There are usually no side effects from short-term use of cortisone-like medications. Some persons feel an increased sense of well-being and are not sleepy at bedtime. Long-term use of cortisone medications is best avoided, unless required for a severe condition. If your condition does not remit, or relapses after the course of corticosteroid medication, you should consult your physician. ACID-SUPPRESSING MEDICATION: You have a prescription for medicine which reduces the stomach's secretion of acid. Examples include Zantac, Tagament, and Pepcid. These drugs are often used to allow healing of ulcers or esophagitis. They may be needed to prevent recurrence of ulcers in some patients, or to prevent damage from acid reflux in the esophagus. Take all medication as prescribed, even after the pain is gone. Regular antacids may be added as needed if you have symptoms while taking this medicine. These medications sometimes are prescribed for allergic reactions because they have anti-histaminic effects and relieve the rash and itching of the reaction. There are usually no side effects from this medication. But, in rare cases and particularly in the elderly, serious problems can occur. Contact your doctor if there is fever, rash, hallucinations, confusion, or unusual bruising. Contact your doctor at once if you develop lightheadedness, black or bloody stool, or bloody vomitus. USE OF DIPHENHYDRAMINE: The use of diphenhydramine (Benadryl) has been recommended to control allergic symptoms. The 25 mg strength is available over- the-counter, as well as the elixir. This antihistamine is used for many symptoms. It's useful for itching, watering eyes and nose, allergic swelling, hives, and insect stings. The medication can be repeated four times daily. Age Elixir (12.5 mg/tsp) 25 mg pill 2-3 yr 1/2 tsp 4-8 yr 1 tsp 9-14 yr 2 tsp one tab adult 1-2 tabs Antihistamines may cause drowsiness, especially with the first dose. Do not operate machinery or drive while under the effects of the medication. Do not combine the medication with alcohol, or with any other medication without talking to your doctor. FOLLOW-UP CARE: If you have been referred to a physician for follow-up care, call the physicians office for an appointment as you were instructed or within the next two days. If you experience worsening or a significant change in your symptoms, notify the physician immediately or return to the Emergency Department at any time for re-evaluation. Prescriptions: Prednisone [Deltasone 20 mg Tablet] 2 tab PO DAILY 5 Days #15 tablet Famotidine [Pepcid 20 mg Tablet] 20 mg PO BID #12 tablet Referrals: MILO CALLAWAY MD [Primary Care Provider] - Follow up in 3-5 days
== END 2019-08-24 13:15 | disposition home or self-care (01) ==
LOC: ER 12:36
DX: O99.719 Diseases of the skin and subcutaneous tissue complicating pregnancy, unspecified trimester (principal); L50.0 Allergic urticaria; O30.109 Triplet pregnancy, unspecified number of placenta and unspecified number of amniotic sacs, unspecified trimester; Z3A.00 Weeks of gestation of pregnancy not specified; Z79.899 Other long term (current) drug therapy
CPT/HCPCS: 99283; J3490 ×2; J7512

== ENCOUNTER 2019-09-20 15:38 | Emergency (ER) | payer MEDICAID ==
--- NOTE | 2019-09-20 16:18 | ER Document Report ---
ED Medical Screen (RME) - General Chief Complaint: Palpitations Stated Complaint: PALPITATIONS Time Seen by Provider: 09/20/19 16:12 Primary Care Provider: MILO CALLAWAY MD [Primary Care Provider] - Follow up as needed Mode of Arrival: Ambulatory Information source: Patient Notes: 29-year-old female G1, P0 at 20 weeks with triplets presents to the emergency department with feeling like her heart is racing for the past 3 days. She reports she becomes shortness of breath. Reports is worse when she lays down. Denies fever vomiting diarrhea. Denies chest pain. No complaints of abdominal pain. No vaginal bleeding. I have greeted and performed a rapid initial assessment of this patient. A comprehensive ED assessment and evaluation of the patient, analysis of test results and completion of the medical decision making process will be conducted by additional ED providers. TRAVEL OUTSIDE OF THE [place] IN LAST 30 DAYS: No - Related Data Allergies/Adverse Reactions: No Known Allergies Allergy (Verified 08/20/19 01:49) Past Medical History - Social History Family history: Reviewed & Not Pertinent - Past Medical History Cardiac Medical History: Denies: Hx Coronary Artery Disease, Hx Heart Attack Pulmonary Medical History: Denies: Hx Asthma, Hx Bronchitis, Hx COPD, Hx Pneumonia Neurological Medical History: Denies: Hx Cerebrovascular Accident, Hx Seizures Renal/ Medical History: Denies: Hx Peritoneal Dialysis Musculoskeltal Medical History: Denies Hx Arthritis Past Surgical History: Reports: Hx Dilation and Curettage - Immunizations Hx Diphtheria, Pertussis, Tetanus Vaccination: No Physical Exam - Vital signs Vitals: Temp 97.6 F 09/20/19 15:39 Course - Vital Signs Vital signs: Temp Pulse Resp BP Pulse Ox 98.7 F 101 H 20 132/75 H 99 09/20/19 15:58 09/20/19 15:58 09/20/19 15:58 09/20/19 15:58 09/20/19 15:58 Doctor's Discharge - Discharge Referrals: MILO CALLAWAY MD [Primary Care Provider] - Follow up as needed
--- NOTE | 2019-09-20 16:39 | RADIOLOGY REPORT (SQ) ---
EXAM DESCRIPTION: CHEST 2 VIEWS IMAGES COMPLETED DATE/TIME: 09/20/2019 4:28 pm REASON FOR STUDY: palpitations, 20 weeks preg COMPARISON: 05/10/2013 EXAM PARAMETERS: NUMBER OF VIEWS: two views TECHNIQUE: Digital Frontal and Lateral radiographic views of the chest acquired. RADIATION DOSE: NA LIMITATIONS: none FINDINGS: LUNGS AND PLEURA: No opacities, masses or pneumothorax. No pleural effusion. MEDIASTINUM AND HILAR STRUCTURES: No masses or contour abnormalities. HEART AND VASCULAR STRUCTURES: Heart normal size. No evidence for failure. BONES: No acute findings. HARDWARE: None in the chest. OTHER: No other significant finding. IMPRESSION: NO ACUTE RADIOGRAPHIC FINDING IN THE CHEST. TECHNICAL DOCUMENTATION: JOB ID: [id number] 2010 [employer]- All Rights Reserved Reading location - IP/workstation name: [email or web address]
--- NOTE | 2019-09-20 17:00 | ER Document Report ---
ED Cardiac - General Mode of Arrival: Ambulatory Information source: Patient TRAVEL OUTSIDE OF THE [place] IN LAST 30 DAYS: No - HPI Patient complains to provider of: Palpitations, Shortness of breath Quality of pain: None Pain level currently: Denies Cardiac risk factors: denies: Smoker, + Family history Associated symptoms: Palpitations, Shortness of breath. denies: Abdominal pain, Anxiety, Nausea/vomiting Exacerbated by: Denies Relieved by: Nothing Similar symptoms previously: No Recently seen / treated by doctor: Yes <SHAYLA VALENZUELA - Last Filed: 09/20/19 20:01> <SUSANNE TRENT - Last Filed: 09/20/19 22:23> - General Chief Complaint: Chest Pain Stated Complaint: PALPITATIONS Time Seen by Provider: 09/20/19 16:45 Primary Care Provider: MILO CALLAWAY MD [Primary Care Provider] - Follow up as needed Notes: Patient is currently G1, P0 20 weeks with triplets. Patient states that she has been having intermittent episodes of heart racing with shortness of breath for the past 3 days. Patient states she will have an episode almost every hour. Patient denies any cough or cold symptoms. Patient denies any fever. Patient denies any vomiting or diarrhea. No vaginal bleeding or discharge. Patient denies any urinary symptoms. [facility] out of [place]. Patient does state that due to her increasing size and multiple gestation she has had lower pelvic pressure which is caused her to have to be on bedrest almost since she found out she was . Patient states she does get up and move around but is not as active as she is in her pre state. Patient denies any cough or cold symptoms. Patient denies any recent travel. (SHAYLA VALENZUELA) - Related Data Allergies/Adverse Reactions: No Known Allergies Allergy (Verified 08/20/19 01:49) Past Medical History - General Information source: Patient - Social History Smoking Status: Never Smoker Chew tobacco use (# tins/day): No Frequency of alcohol use: None Drug Abuse: None Occupation: None Lives with: Family Family History: Reviewed & Not Pertinent Patient has homicidal ideation: No - Medical History Medical History: Negative - Past Medical History Cardiac Medical History: Denies: Hx Coronary Artery Disease, Hx Heart Attack Pulmonary Medical History: Denies: Hx Asthma, Hx Bronchitis, Hx COPD, Hx Pneumonia Neurological Medical History: Denies: Hx Cerebrovascular Accident, Hx Seizures Renal/ Medical History: Denies: Hx Peritoneal Dialysis Musculoskeletal Medical History: Denies Hx Arthritis Past Surgical History: Reports: Hx Dilation and Curettage - Immunizations Hx Diphtheria, Pertussis, Tetanus Vaccination: No <SHAYLA VALENZUELA - Last Filed: 09/20/19 20:01> Review of Systems - Review of Systems Constitutional: No symptoms reported. denies: Fever, Recent illness EENT: No symptoms reported Cardiovascular: Palpitations. denies: Chest pain Respiratory: Short of breath. denies: Cough Gastrointestinal: No symptoms reported. denies: Abdominal pain, Diarrhea, Nausea, Vomiting Genitourinary: No symptoms reported. denies: Dysuria Female Genitourinary: . denies: Vaginal discharge, Vaginal bleeding Musculoskeletal: No symptoms reported. denies: Back pain, Leg swelling Skin: No symptoms reported Hematologic/Lymphatic: No symptoms reported Neurological/Psychological: No symptoms reported <SHAYLA VALENZUELA - Last Filed: 09/20/19 20:01> Physical Exam - General General appearance: Appears well, Alert In distress: None - HEENT Head: Normocephalic, Atraumatic Eyes: Normal Conjunctiva: Normal Nasal: Normal Mouth/Lips: Normal Mucous membranes: Normal Pharynx: Normal Neck: Normal, Supple. No: Lymphadenopathy, Neck mass, Thyroid nodule - Respiratory Respiratory status: No respiratory distress Chest status: Nontender Breath sounds: Normal. No: Rales, Rhonchi, Stridor, Wheezing Chest palpation: Normal - Cardiovascular Rhythm: Regular Heart sounds: S1 appreciated, S2 appreciated - Abdominal Inspection: Gravid female Tenderness: Nontender - Back Back: Normal, Nontender. No: CVA tenderness - Extremities General upper extremity: Normal inspection, Normal strength General lower extremity: Normal inspection, Normal strength. No: Edema - Neurological Neuro grossly intact: Yes Cognition: Normal [place] Coma Scale Eye Opening: Spontaneous [place] Coma Scale Verbal: Oriented [place] Coma Scale Motor: Obeys Commands Amparo Coma Scale Total: 15 - Psychological Associated symptoms: Normal affect, Normal mood - Skin Skin Temperature: Warm Skin Moisture: Dry Skin Color: Normal <SHAYLA VALENZUELA - Last Filed: 09/20/19 20:01> - Vital signs Vitals: Temp 97.6 F 09/20/19 15:39 Course - Laboratory Result Diagrams: 09/20/19 16:30 09/20/19 16:30 - Diagnostic Test Radiology reviewed: Reports reviewed <SHAYLA VALENZUELA - Last Filed: 09/20/19 20:01> - Laboratory Result Diagrams: 09/20/19 16:30 09/20/19 16:30 <SUSANNE TRENT - Last Filed: 09/20/19 22:23> - Re-evaluation Re-evalutation: 09/20/19 18:[address] Gonzalez who recommends consultation with the OB provider to determine if they would like us to perform any additional imaging and/or if they would prefer to have patient upstairs for further monitoring. 09/20/19 18:51 Call placed to technical operator for consultation with OB provider, OB provider currently with the patient and will return call 09/20/19 19:36 Patient updated regarding plan of care at this time. 09/20/19 20:01 Called to [facility] consultation with OB provider, OB provider currently in the OR. (SHAYLA VALENZUELA) - Vital Signs Vital signs: Temp Pulse Resp BP Pulse Ox 98.7 F 101 H 17 127/72 H 100 09/20/19 15:58 09/20/19 15:58 09/20/19 22:03 09/20/19 22:03 09/20/19 22:03 - Laboratory Laboratory results interpreted by me: 09/20/19 09/20/19 09/20/19 16:30 16:30 16:30 WBC 11.5 H Hgb 11.2 L Hct 33.5 L RDW 14.3 H Band Neutrophils % 1 L Sodium 134.1 L Carbon Dioxide 18 L Creatinine 0.48 L AST 47 H ALT 73 H Free T4 Urine Urobilinogen 4.0 H Ur Leukocyte Esterase MODERATE H 09/20/19 16:30 WBC Hgb Hct RDW Band Neutrophils % Sodium Carbon Dioxide Creatinine AST ALT Free T4 0.58 L Urine Urobilinogen Ur Leukocyte Esterase Labs- Entire Visit 09/20/19 09/20/19 09/20/19 16:30 16:30 16:30 WBC 11.5 H RBC 4.10 Hgb 11.2 L Hct 33.5 L MCV 82 MCH 27.3 MCHC 33.4 RDW 14.3 H Plt Count 282 Lymph % (Auto) Not Reportable Glades % (Auto) Not Reportable Eos % (Auto) Not Reportable Baso % (Auto) Not Reportable Absolute Neuts (auto) Not Reportable Absolute Lymphs (auto) Not Reportable Absolute Monos (auto) Not Reportable Absolute Eos (auto) Not Reportable Absolute Basos (auto) Not Reportable Total Counted 100 Seg Neutrophils % Not Reportable Seg Neuts % (Manual) 70 Band Neutrophils % 1 L Lymphocytes % (Manual) 18 Monocytes % (Manual) 6 Eosinophils % (Manual) 5 Basophils % (Manual) 0 Abs Neuts (Manual) 8.2 Abs Lymphs (Manual) 2.1 Abs Monocytes (Manual) 0.7 Absolute Eos (Manual) 0.6 Abs Basophils (Manual) 0.0 Toxic Granulation 1+ Platelet Comment ADEQUATE Anisocytosis SLIGHT Sodium 134.1 L Potassium 4.0 Chloride 107 Carbon Dioxide 18 L Anion Gap 9 BUN 7 Creatinine 0.48 L Est GFR ( Amer) > 60 Est GFR (MDRD) Non-Af > 60 Glucose 86 Calcium 9.0 Total Bilirubin 0.4 Direct Bilirubin 0.0 Neonat Total Bilirubin Not Reportable Neonat Direct Bilirubin Not Reportable Neonat Indirect Bili Not Reportable AST 47 H ALT 73 H Alkaline Phosphatase 66 Total Protein 6.6 Albumin 3.6 TSH Free T4 Free T3 pg/mL Urine Color YELLOW Urine Appearance CLEAR Urine pH 7.0 Ur Specific [place] 1.015 Urine Protein NEGATIVE Urine Glucose (UA) NEGATIVE Urine Ketones NEGATIVE Urine Blood NEGATIVE Urine Nitrite NEGATIVE Urine Bilirubin NEGATIVE Urine Urobilinogen 4.0 H Ur Leukocyte Esterase MODERATE H Urine WBC (Auto) 5 Urine RBC (Auto) 1 Urine Bacteria (Auto) 2+ Squamous Epi Cells Auto 1 Urine Mucus (Auto) RARE Urine Ascorbic Acid NEGATIVE 09/20/19 16:30 WBC RBC Hgb Hct MCV MCH MCHC RDW Plt Count Lymph % (Auto) [place] % (Auto) Eos % (Auto) Baso % (Auto) Absolute Neuts (auto) Absolute Lymphs (auto) Absolute Monos (auto) Absolute Eos (auto) Absolute Basos (auto) Total Counted Seg Neutrophils % Seg Neuts % (Manual) Band Neutrophils % Lymphocytes % (Manual) Monocytes % (Manual) Eosinophils % (Manual) Basophils % (Manual) Abs Neuts (Manual) Abs Lymphs (Manual) Abs Monocytes (Manual) Absolute Eos (Manual) Abs Basophils (Manual) Toxic Granulation Platelet Comment Anisocytosis Sodium Potassium Chloride Carbon Dioxide Anion Gap BUN Creatinine Est GFR ( Amer) Est GFR (MDRD) Non-Af Glucose Calcium Total Bilirubin Direct Bilirubin Neonat Total Bilirubin Neonat Direct Bilirubin Neonat Indirect Bili AST ALT Alkaline Phosphatase Total Protein Albumin TSH 1.95 Free T4 0.58 L Free T3 pg/mL 4.13 Urine Color Urine Appearance Urine pH Ur Specific [place] Urine Protein Urine Glucose (UA) Urine Ketones Urine Blood Urine Nitrite Urine Bilirubin Urine Urobilinogen Ur Leukocyte Esterase Urine WBC (Auto) Urine RBC (Auto) Urine Bacteria (Auto) Squamous Epi Cells Auto Urine Mucus (Auto) Urine Ascorbic Acid (SHAYLA VALENZUELA) Discharge <SHAYLA VALENZUELA - Last Filed: 09/20/19 20:01> <SUSANNE TRENT - Last Filed: 09/20/19 22:23> - Discharge Clinical Impression: Palpitations, Shortness of breath Condition: Stable Disposition: HOME, SELF-CARE Additional Instructions: Your work-up does show a hiatal hernia and a urinary tract infection, however no blood clot or other concerning finding is seen in regards to your symptoms of palpitations and shortness of breath. Most likely her symptoms are from physiologic changes with your developing . Take the antibiotics as prescribed to completion. Follow-up closely with your [facility] for additional management. Return if you worsen including difficulty breathing, passing out, chest pain, vomiting, fever, or any other concerning symptoms. Prescriptions: Cephalexin Monohydrate [Keflex 500 mg Capsule] 500 mg PO BID 5 Days #10 capsule Referrals: MILO CALLAWAY MD [Primary Care Provider] - Follow up as needed
[2019-09-20 17:05] LABS: HEMATOCRIT 33.5 % (36.0-47.0); HEMOGLOBIN 11.2 g/dL (12.0-15.5); MEAN CORPUSCULAR HEMOGLOBIN 27.3 pg (27.0-33.4); MEAN CORPUSCULAR HGB CONC 33.4 g/dL (32.0-36.0); MEAN CORPUSCULAR VOLUME 82 fl (80-97); PLATELET COUNT 282 10^3/uL (150-450); RED CELL DISTRIBUTION WIDTH 14.3 % (11.5-14.0); WHITE BLOOD COUNT 11.5 10^3/uL (4.0-10.5)
[2019-09-20 17:11] LABS: APPEARANCE,URINE CLEAR; BILIRUBIN,URINE NEGATIVE (NEGATIVE); COLOR,URINE YELLOW; GLUCOSE, URINE NEGATIVE (NEGATIVE); KETONES,URINE NEGATIVE (NEGATIVE); LEUKOCYTE ESTERASE,URINE MODERATE (NEGATIVE); NITRITE,URINE NEGATIVE (NEGATIVE); PROTEIN,URINE NEGATIVE (NEGATIVE); URINE SPECIFIC GRAVITY 1.015
[2019-09-20 17:32] LABS: ABSOLUTE LYMPHOCYTES# (MANUAL) 2.1 10^3/uL (0.5-4.7); ABSOLUTE MONOCYTES # (MANUAL) 0.7 10^3/uL (0.1-1.4); BAND NEUTROPHILS % (MANUAL) 1 % (3-5); BASOPHILS % (MANUAL) 0 % (0-2); EOSINOPHILS % (MANUAL) 5 % (0-6); LYMPHOCYTES % (MANUAL) 18 % (13-45); MONOCYTES % (MANUAL) 6 % (3-13); SEGMENTED NEUTROPHILS % (MAN) 70 % (42-78); TOTAL CELLS COUNTED 100
[2019-09-20 17:33] LABS: TOXIC GRANULATION 1+
[2019-09-20 17:34] LABS: ANISOCYTOSIS SLIGHT; PLATELET COMMENT ADEQUATE
[2019-09-20 17:39] LABS: FREE T3 4.13 pg/mL (2.77-5.27); FREE T4 (FREE THYROXINE) 0.58 ng/dL (0.78-2.19)
[2019-09-20 17:45] LABS: ALBUMIN 3.6 g/dL (3.5-5.0); ALKALINE PHOSPHATASE 66 U/L (38-126); ANION GAP 9 (5-19); ASPARTATE AMINO TRANSFERASE 47 U/L (14-36); BILIRUBIN,TOTAL 0.4 mg/dL (0.2-1.3); BLOOD UREA NITROGEN 7 mg/dL (7-20); CARBON DIOXIDE 18 mmol/L (22-30); CHLORIDE 107 mmol/L (98-107); GLUCOSE 86 mg/dL (75-110); TOTAL PROTEIN 6.6 g/dL (6.3-8.2)
[2019-09-20 17:53] LABS: THYROID STIMULATING HORMONE 1.95 uIU/mL (0.47-4.68)
--- NOTE | 2019-09-20 20:43 | ER Document Report ---
Doctor's Note Notes: 09/20/19 20:40 This is a patient I have evaluated along with the midlevel provider today. 29-year-old female primigravida with multiple gestation, triplets at 22 weeks EGA presenting with palpitations. Also some associated dyspnea. She denies any chest pain. She denies any syncope. She denies any prior history of thro mboembolic disease or any family history of thromboembolic disease. Exam here shows a gravid female with 3 discrete heartbeats identifiable by Doppler and the fundus of the uterus is currently close to the xiphoid. Abdomen is nontender chest is clear cardiac rhythm is regular without murmur gallop or rub but she is tachycardic with a resting heart rate about 112. She has trace pretibial edema bilaterally with no calf tenderness redness or palpable cords. Her O2 saturation on room air is 97%. EKG was remarkable only for sinus tachycardia. Comprehensive metabolic profile is normal. CBC is remarkable for mild anemia with hemoglobin 11.6 g. A shielded chest x-ray has already been obtained and is read as normal by the radiologist. Case was discussed with on-call [employer] and they are undecided about potential need for CTA. I discussed this with the patient and she understands her options and the relative risks and benefits. She is chosen to have CTA and I think this is appropriate because of the increased risk of PE related to the hypercoagulable state of although her current symptoms may well be due to simple physiologic changes of . Further disposition of the patient will be determined by the outcome of CTA.
--- NOTE | 2019-09-20 22:01 | RADIOLOGY REPORT (SQ) ---
EXAM DESCRIPTION: CLINICAL HISTORY: 29 years Female tachycardia, shortness of breath; 20 weeks . COMPARISON: Chest x-ray from today. TECHNIQUE: Axial images with 100 mCi of Omnipaque 350. MIP reconstruction. This exam was performed according to our departmental dose-optimization program, which includes automated exposure control, adjustment of the mA and/or kV according to patient size and/or use of iterative reconstruction technique.. Patient was shielded in the abdomen. FINDINGS: Motion artifact. Nondilated 24 mm main pulmonary artery. No obvious PE. Borderline left heart size. No suspicious mediastinal adenopathy or pericardial effusion. No obvious acute lung or pleural abnormalities. Euds-[id number] hiatal hernia. Limited images of the upper abdomen are unremarkable. IMPRESSION: Motion artifact. No obvious PE. Mild to moderate hiatal hernia. No acute findings noted.
[2019-09-20] MEDS ORDERED: CEPHALEXIN 500 MG CAPSULE PO ONE (22:21)
--- NOTE | 2019-09-20 22:29 | EKG REPORT ---
SEVERITY:- OTHERWISE NORMAL ECG - SINUS TACHYCARDIA : Confirmed by: Anat Lr MD 20-Sep-2019 22:28:14
[2019-09-20 22:33] VITALS: BP 125/80
== END 2019-09-20 22:34 | disposition home or self-care (01) ==
LOC: ER 15:38
DX: O26.892 Other specified pregnancy related conditions, second trimester (principal); R00.2 Palpitations; R06.02 Shortness of breath; R07.9 Chest pain, unspecified; Z3A.20 20 weeks gestation of pregnancy
CPT/HCPCS: 36415; 71046; 71275; 80053; 81001; 84439; 84443; 84481; 85025; 87086; 93005; 93010; 99285

== ENCOUNTER 2019-12-08 18:38 | Observation (INO) | payer MEDICAID ==
[2019-12-08 19:37] LABS: APPEARANCE,URINE CLEAR; BILIRUBIN,URINE NEGATIVE (NEGATIVE); COLOR,URINE STRAW; GLUCOSE, URINE NEGATIVE (NEGATIVE); KETONES,URINE TRACE mg/dL (NEGATIVE); LEUKOCYTE ESTERASE,URINE MODERATE (NEGATIVE); NITRITE,URINE NEGATIVE (NEGATIVE); PROTEIN,URINE 30 mg/dL (NEGATIVE); URINE SPECIFIC GRAVITY 1.005; UROBILINOGEN,URINE NEGATIVE mg/dL (<2.0)
[2019-12-08 20:09] LABS: URINE AMPHETAMINES SCREEN NEGATIVE; URINE BARBITURATES SCREEN NEGATIVE; URINE BENZODIAZEPINES SCREEN NEGATIVE; URINE COCAINE SCREEN NEGATIVE; URINE MARIJUANA (THC) SCREEN NEGATIVE; URINE METHADONE SCREEN NEGATIVE; URINE PHENCYCLIDINE SCREEN NEGATIVE
[2019-12-08] MEDS ORDERED: NIFEDIPINE 10 MG CAPSULE PO ONE ×3 (20:38→21:10)
[2019-12-08] MEDS ORDERED: NIFEDIPINE 10 MG CAPSULE ONE (20:43)
[2019-12-08] MEDS ORDERED: BETAMET ACET/BETAMET NA INJ 6 MG/1 ML IM ONE (20:55)
[2019-12-08] MEDS ORDERED: IBUPROFEN 800 MG TABLET PO ONE (20:56)
--- NOTE | 2019-12-08 21:03 | RADIOLOGY REPORT (SQ) ---
EXAM DESCRIPTION: US LIMITED COMPLETED DATE/TME: 12/08/2019 00:00 CLINICAL HISTORY: 29 years, Female, cervical length, placenta location, triplets COMPARISON: June 07, 2019 ultrasound TECHNIQUE: Transabdominal and transvaginal images of the pelvis were obtained. Grayscale imaging and Doppler imaging were performed. LIMITATIONS: None. FINDINGS: Examination reveals live, triplet gestation, which appear to be trichorionic triamnionic. Fetus A is in a transverse lie with the head positioned at the maternal left. There is a heart rate 153 bpm. There is a normal amount of amniotic fluid. Placenta is posterior and associated with total placenta previa. Fetus B is in a breech presentation, with a heart rate of 139 bpm and associated with an anterior placenta. There is a normal amount of amniotic fluid. Fetus C is in a cephalic presentation, with a heart rate of 160 bpm, and associated with a posterior fundal placenta. There is a normal amount of amniotic fluid. biometry was not performed. Uterine cervix measures 3.2 cm in length. There is no funneling of the internal cervical os. IMPRESSION: Live, triplet gestations as above. There is total placenta previa. copyright 2010 [employer]- All Rights Reserved
[2019-12-08] MEDS ORDERED: RINGERS SOLUTION,LACTATED 1,000 ML IV PRN (21:07)
[2019-12-08] MEDS ORDERED: RINGERS SOLUTION,LACTATED 1,000 ML IV ONE (21:07)
[2019-12-08] MEDS ORDERED: BETAMET ACET/BETAMET NA INJ 6 MG/1 ML ONE (21:10)
[2019-12-08] MEDS ORDERED: IBUPROFEN 800 MG TABLET ONE (21:11)
--- NOTE | 2019-12-08 21:20 | Admission Physical ---
Datetime Report Generated by CPN: 12/08/2019 21:20 CURRENT ADMISSION Chief Complaint: Uterine Contractions Indication for Induction: Not Applicable Admit Impression : , Intrauterine ; No Active Labor; Intact Membranes; Observation/Evaluation Admit Plan: Admit to Unit; Initiate Labor Protocol ALLERGIES Medication Allergies: No Medication Allergies: No Known Allergies (08/20/2019) Latex: No Latex Allergies Food Allergies: N/A Environmental Allergies: N/A OBSTETRICAL HISTORY EDC: 02/08/2020 00:00 : 3 Para: 0 Term: 0 : 0 SAB: 1 IAB: 1 Livin PHYSICAL EXAM General: Normal HEENT: Normal Neurologic: Normal Thyroid: Deferred Heart: Normal Lungs: Normal Breast: Deferred Back: Normal Abdomen: Normal Genitourinary Exam: Normal Extremities: Normal DTRs: Normal Pelvic Type: Adequate Vital Signs: Reviewed MEMBRANES Membranes: Intact FETUS A EGA: 31.1 Monitoring: External US Admit Comment: 29yo at 31+1ega presents for irreg mild cramping and reports pressure. Denies LOF and VB. Triplets, placenta previa. CHTN. PrePreg BMI 38, Failed 1 hr GTT, passed 3 hr GTT. Echo- Triplet A mild ventricular hypertrophy and mild tricuspid regurgitation, Triplet B no cardiac findings, Triplet C - VSD. GDM per MFM notes (not in [facility] records) Loos like A2GDM per MFM records and Glyburide 1.25mg QHS. D/w MFM regading cervical length of 3.2 and closed and placenta covering os. MFM ok with plan of BMZ, procardia and recommended 1 dose of motrin 800mg. Pt reporting ctx/cramping as mild. Since unable to check cervix will monitor paitents pain and if patient appears to begin to have a change in contractions would transfer. MFM recommend not repeat US but attempt interventions and transfer if patient status change. Admit for observation. Due to ega of less than 32wks needs delivery elsewhere. INFORMED CONSENT Informed Consent Obtained: Section Delivery; Risks, Benefits and Alternatives Discussed Signature: with User ID: [email or web address]
[2019-12-08] MEDS ORDERED: FAMOTIDINE INJ/PF 20 MG/2 ML SDV IV ONE (21:43)
[2019-12-08] MEDS ORDERED: FAMOTIDINE 20 MG TABLET ONE (21:44)
[2019-12-08] MEDS ORDERED: FAMOTIDINE 20 MG TABLET PO ONE (21:44)
--- NOTE | 2019-12-08 21:44 | L&D Progress Notes ---
PROGRESS NOTES Datetime Report Generated by CPN: 12/08/2019 21:44 PROGRESS NOTE Informed Consent Obtained: Section Delivery; Risks, Benefits and Alternatives Discussed Comment: Reactive x 3. Pt voided and reports some improvement. Cramping for 2-3 days per patient but increased frequency today. Reviewed with her again regarding notation from 11/12 note MFM that she has GDM on Glyburide. Reviewed [facility] records with her again and reviewed with patient and family again - pt reports never been on Glyburide. Therefore no GDM. MEMBRANES Membranes: Intact SIGNATURE SIGNATURE: [id number] Signature: with User ID: [email or web address]
[2019-12-08 22:09] LABS: ABSOLUTE EOSINOPHILS # (AUTO) 0.1 10^3/uL (0.0-0.6); ABSOLUTE LYMPHOCYTES (AUTO) 2.5 10^3/uL (0.5-4.7); ABSOLUTE MONOCYTES (AUTO) 0.6 10^3/uL (0.1-1.4); ABSOLUTE NEUT (AUTO) 7.4 10^3/uL (1.7-8.2); BASOPHILS % (AUTO) 0.4 % (0-2); EOSINOPHILS % (AUTO) 0.5 % (0-6); HEMATOCRIT 36.3 % (36.0-47.0); HEMOGLOBIN 11.6 g/dL (12.0-15.5); LYMPHOCYTES % (AUTO) 23.7 % (13-45); MEAN CORPUSCULAR HEMOGLOBIN 25.2 pg (27.0-33.4); MEAN CORPUSCULAR HGB CONC 32.1 g/dL (32.0-36.0); MEAN CORPUSCULAR VOLUME 79 fl (80-97); MONOCYTES % (AUTO) 5.9 % (3-13); PLATELET COUNT 200 10^3/uL (150-450); RED BLOOD COUNT 4.62 10^6/uL (3.72-5.28); RED CELL DISTRIBUTION WIDTH 16.3 % (11.5-14.0); SEGMENTED NEUTROPHILS % (AUTO) 69.5 % (42-78); TOTAL CELLS COUNTED % (AUTO) 100 %; WHITE BLOOD COUNT 10.6 10^3/uL (4.0-10.5)
[2019-12-08] MEDS ORDERED: MAGNESIUM SULFATE 20 GM/500 ML RTUINJ IV PRN (22:10)
--- NOTE | 2019-12-08 22:11 | L&D Progress Notes ---
PROGRESS NOTES Datetime Report Generated by CPN: 12/08/2019 22:10 PROGRESS NOTE Informed Consent Obtained: Section Delivery; Risks, Benefits and Alternatives Discussed Comment: Pt is reporting now more than 1 hour after after 3rd dose of procardia and also motrin - still with 3-4/5 pain with contractions. She still reports that they are approx 7 min apart. Will start mag for transfer. BMZ already on board. No bleeding. PCN for GBS prophy. GBS, wet prep, GC/CT done. MEMBRANES Membranes: Intact SIGNATURE SIGNATURE: [id number] Signature: with User ID: [email or web address]
[2019-12-08] MEDS ORDERED: PENICILLIN G-K 5 MILLION UNIT VIAL ONE (22:18)
[2019-12-08] MEDS ORDERED: MAGNESIUM SULFATE 20 GM/500 ML RTUINJ IV ONE (22:18)
[2019-12-08] MEDS ORDERED: MAGNESIUM SULFATE 4 GM/100 ML RTUPB IV ONE ×2 (22:18→22:45)
--- NOTE | 2019-12-08 22:30 | PDOC TRANSFER SUMMARY ---
General Admission Date/PCP: 12/08/19 21:05 MILO CALLAWAY MD Admission Date: 12/08/19 Transfer Date: 12/08/19 Accepting Facility: [facility] Accepting Physician: Irvin Chavez MD Resuscitation Status: Full Code - Transfer Diagnosis (1) Placenta previa Is this a current diagnosis for this admission?: Yes Diagnosis Summary: appears to be complete previa. No bleeding now. Pt has not had any bleeding from previa during except for very early in . (2) uterine contractions, antepartum Is this a current diagnosis for this admission?: Yes Diagnosis Summary: Motrin, Procardia given with no improvement in contractions. She did however, initially report contractions at 3-5min (tracing at 2-7 minutes) now ctx q 5-7 minutes. Patient reports still 3-4/5 and feeling rectal pressure. Celestone 12mg given. PCN for GBS prophy and Mag sulfate for neuroprotection given at least for transfer and patient aware that may be stopped when arrive if contractions subside. (3) Triplet gestation in third trimester Is this a current diagnosis for this admission?: Yes Diagnosis Summary: Triplet gestational followed by [facility] baby A with ventricular hypertrophy and tricuspid regurgiation baby B - no heart issues Baby C - VSD - Transfer Medications Home Medications: Famotidine [Pepcid 20 mg Tablet] 20 mg PO DAILY 12/08/19 Fexofenadine HCl [Taina Allergy] 180 mg PO DAILY 12/08/19 Folic Acid 1 mg PO DAILY 12/08/19 Omeprazole Magnesium [Prilosec Otc] 20 mg PO DAILY 12/08/19 Prenat 115/Iron Fum/Folic/Dss [ 19 Tablet] 1 each PO DAILY 12/08/19 Transfer Medications: Current Medications Lactated Ringer's (Lactated Ringers 1000 Ml Iv Soln) 1,000 mls @ 125 mls/hr IV CONTINUOUS PRN PRN Reason: THIS MED IS NOT "PRN" Stop: 01/07/20 21:06 Magnesium Sulfate (Magnesium Sulfate Rtu 4 Gm/100 Ml Premix Bag) 4 gm in 100 mls @ 200 mls/hr IV NOW ONE Stop: 12/08/19 22:39 Magnesium Sulfate (Magnesium Sulfate Rtu 20 Gm/500 Ml Premix) 20 gm in 500 mls @ 0 mls/hr IV CONTINUOUS PRN PRN Reason: THIS MED IS NOT "PRN" Stop: 01/07/20 22:09 Penicillin G Potassium 5,000, (000 unit/ Dextrose) 100 mls @ 200 mls/hr IV NOW ONE Stop: 12/08/19 22:46 Penicillin G Potassium 2,500, (000 unit/ Dextrose) 50 mls @ 100 mls/hr IV Q4H [facility] Stop: 12/16/19 02:16 - Allergies Allergies/Adverse Reactions: No Known Allergies Allergy (Verified 12/08/19 22:16) - Diet/Activity Discharge Diet: As Tolerated Discharge Activity: Bedrest Hospital Course Hospital Course: 29yo at 31+1ega presented for contractions for three days worsening today. She was given procardia and motrin and care d/w MFM due to triplet . Procardia and Motrin not helping to decrease contractions. Since she also has a complete previa we are unable to ck her cervix - however closed on US and visually during SSE for Wet prep/GC/CT and GBS collection. She has had no improvement in contractions and despite medications is breathing through contractions and she does not feel that they are improving. Reviewed with patient that since triplet with complete previa would err on side of transfer early and then if discharged and over 32 weeks should be able to deliver here. She failed her 1 hr GTT, passed her 3 hr GTT - does not have GDM and reports that she is not on any Glyburide. Physical Exam Vital Signs: Intake & Output 12/07/19 12/08/19 12/09/19 06:59 06:59 06:59 Weight 121.109 kg General appearance: PRESENT: no acute distress, well-developed, well-nourished Head exam: PRESENT: atraumatic, normocephalic Respiratory exam: PRESENT: clear to auscultation anshul. ABSENT: rales, rhonchi, wheezes Cardiovascular exam: PRESENT: RRR. ABSENT: diastolic murmur, rubs, systolic murmur GI/Abdominal exam: PRESENT: normal bowel sounds, soft. ABSENT: distended, guarding, mass, organolmegaly, rebound, tenderness Rectal exam: PRESENT: deferred Extremities exam: PRESENT: full ROM. ABSENT: calf tenderness, clubbing, pedal edema Neurological exam: PRESENT: alert, awake, oriented to person, oriented to place, oriented to time, oriented to situation, CN II-XII grossly intact. ABSENT: m otor sensory deficit Psychiatric exam: PRESENT: appropriate affect, normal mood. ABSENT: homicidal ideation, suicidal ideation Results Laboratory Results: 12/08/19 21:45 12/08/19 12/08/19 18:56 21:45 WBC 10.6 H RBC 4.62 Hgb 11.6 L Hct 36.3 MCV 79 L MCH 25.2 L MCHC 32.1 RDW 16.3 H Plt Count 200 Seg Neutrophils % 69.5 Urine Color STRAW Urine Appearance CLEAR Urine pH 7.0 Ur Specific [place] 1.005 Urine Protein 30 H Urine Glucose (UA) NEGATIVE Urine Ketones TRACE H Urine Blood NEGATIVE Urine Nitrite NEGATIVE Ur Leukocyte Esterase MODERATE H Urine WBC (Auto) 9 Urine RBC (Auto) 1 Impressions: Obstetrics Ultrasound 12/08/19 00:00 IMPRESSION: Live, triplet gestations as above. There is total placenta previa. copyright 2010 [employer]- All Rights Reserved Status: Imported from [employer]
[2019-12-08] MEDS ORDERED: PENICILLIN G POTASSIUM 5,000,000 UNIT in DEXTROSE 5%-WATER 100 ML IV ONE (22:45)
[2019-12-08 22:47] LABS: BACTERIA (WET MOUNT) 4+ BACTERIA SEEN; EPITHELIALS (WET MOUNT) 3+ EPITHELIALS SEEN; T.VAGINALIS (WET MOUNT) NO TRICHOMONAS SEEN; WBCS (WET MOUNT) 2+ WBCS SEEN; YEAST (WET MOUNT) NO YEAST SEEN
[2019-12-09 00:12] LABS: CHLAM PCR DETECTED (NOT DETECT)
[2019-12-09] MEDS ORDERED: AZITHROMYCIN 1 GM SUSP PACKET PO ONE (00:18)
[2019-12-09] MEDS ORDERED: AZITHROMYCIN 1 GM SUSP PACKET ONE (00:19)
[2019-12-09] MEDS ORDERED: AZITHROMYCIN 250 MG TABLET ONE (00:20)
[2019-12-09] MEDS ORDERED: AZITHROMYCIN 250 MG TABLET PO ONE (00:30)
[2019-12-09] MEDS ORDERED: PENICILLIN G POTASSIUM 2,500,000 UNIT in DEXTROSE 5%-WATER 50 ML IV SCH (02:00)
== END 2019-12-09 01:53 | disposition short-term general hospital (02) ==
LOC: LC 18:38 → LR 21:05
PROVIDERS: ADMIT Student in an Organized Health Care Education/Training Program; ATTEND Student in an Organized Health Care Education/Training Program
DX: O44.03 Complete placenta previa NOS or without hemorrhage, third trimester (principal); O60.03 Preterm labor without delivery, third trimester; O30.103 Triplet pregnancy, unspecified number of placenta and unspecified number of amniotic sacs, third trimester; O98.813 Other maternal infectious and parasitic diseases complicating pregnancy, third trimester; A74.9 Chlamydial infection, unspecified; O31.8X31 Other complications specific to multiple gestation, third trimester, fetus 1; O31.8X Other complications specific to multiple gestation; Z3A.31 31 weeks gestation of pregnancy; Z86.79 Personal history of other diseases of the circulatory system
CPT/HCPCS: 94760; 96372; 86900; 86901; 36415; 87086; 87210; 86870; 86850; 85025; 86592; 81001; 87081; 80307; 87491; 87591; 84112; 76812; 76815; 59899; G0378 ×2; C1758; J3475 ×2; J3490 ×3; Q0144; J2540; J0702; J7060

== ENCOUNTER 2019-12-20 16:46 | Emergency (ER) | payer MEDICAID ==
--- NOTE | 2019-12-20 17:23 | ER Document Report ---
ED Medical Screen (RME) - General Chief Complaint: Facial Droop Stated Complaint: BLURRED VISION Time Seen by Provider: 12/20/19 17:12 Mode of Arrival: Wheelchair Information source: Patient Notes: HPI; 29-year-old female 8 days post delivery of triplets presents to the emergency room complaining of right-sided facial numbness for the past 6 days. Has noticed some tingling to her tongue when she brushes her teeth. Yesterday she noticed that when she smiled the right side of her face did not move. Today she had some right eye blurriness. Eyes any head trauma head injury. Patient did have preeclampsia is currently on labetalol. PE: Alert and oriented x3. Decreased sensation to right side of face. Gasoline Tractor Operator strength equal and adequate bilaterally. No decrease sensation to touch of the right forearm. When smiles there is no movement to the right side of her face. Equal lifting of eyebrows noted. No other neuro deficits noted. I have greeted and performed a rapid initial assessment of this patient. A comprehensive ED assessment and evaluation of the patient, analysis of test results and completion of the medical decision making process will be conducted by additional ED providers. I have specifically instructed the patient or family members with the patient to immediately return to any nursing staff should anything change in the patient's condition or with their chief complaint. TRAVEL OUTSIDE OF THE [place] IN LAST 30 DAYS: No - Related Data Allergies/Adverse Reactions: No Known Allergies Allergy (Verified 12/20/19 17:09) Past Medical History - Social History Chew tobacco use (# tins/day): No Frequency of alcohol use: None Drug Abuse: None Family history: Reviewed & Not Pertinent - Past Medical History Cardiac Medical History: Denies: Hx Coronary Artery Disease, Hx Heart Attack Pulmonary Medical History: Denies: Hx Asthma, Hx Bronchitis, Hx COPD, Hx Pneumonia Neurological Medical History: Denies: Hx Cerebrovascular Accident, Hx Seizures Renal/ Medical History: Denies: Hx Peritoneal Dialysis Musculoskeltal Medical History: Denies Hx Arthritis Past Surgical History: Reports: Hx Dilation and Curettage - Immunizations Hx Diphtheria, Pertussis, Tetanus Vaccination: No
--- NOTE | 2019-12-20 18:11 | RADIOLOGY REPORT (SQ) ---
EXAM DESCRIPTION: CT HEAD WITHOUT IMAGES COMPLETED DATE/TIME: 12/20/2019 5:55 pm REASON FOR STUDY: facial numbness COMPARISON: None. TECHNIQUE: Axial images acquired through the brain without intravenous contrast. Images reviewed wi th bone, brain and subdural windows. Images stored on PACS. All CT scanners at this facility use dose modulation, iterative reconstruction, and/or weight based d osing when appropriate to reduce radiation dose to as low as reasonably achievable (ALARA). [facility]: Dose Right [facility]: CareDose [facility]: Dose Right [facility]: Teradose 4D [facility]: Smart Hammerhead Navigation RADIATION DOSE: CT Rad equipment meets quality standard of care and radiation dose reduction techniq ues were employed. CTDIvol: 53.2 mGy. DLP: 1124 mGy-cm. mGy. LIMITATIONS: None. FINDINGS: VENTRICLES: Normal size and contour. CEREBRUM: No masses. No hemorrhage. No midline shift. No evidence for acute infarction. Normal gra y/white matter differentiation. No areas of low density in the white matter. CEREBELLUM: No masses. No hemorrhage. No alteration of density. No evidence for acute infarction. EXTRAAXIAL SPACES: No fluid collections. No masses. ORBITS AND GLOBE: No intra- or extraconal masses. Normal contour of globe without masses. CALVARIUM: No fracture. PARANASAL SINUSES: No fluid or mucosal thickening. SOFT TISSUES: No mass or hematoma. OTHER: No other significant finding. IMPRESSION: NORMAL BRAIN CT WITHOUT CONTRAST. EVIDENCE OF ACUTE STROKE: NO. COMMENT: Quality ID # [id number]: Final reports with documentation of one or more dose reduction techniques (e.g., Automated exposure control, adjustment of the mA and/or kV according to patient size, use of iterative reconstruction technique) TECHNICAL DOCUMENTATION: JOB ID: [id number] 2010 [employer]- All Rights Reserved Reading location - IP/workstation name: [email or web address]
[2019-12-20 18:24] LABS: ABSOLUTE LYMPHOCYTES (AUTO) 1.7 10^3/uL (0.5-4.7); ABSOLUTE MONOCYTES (AUTO) 0.6 10^3/uL (0.1-1.4); ABSOLUTE NEUT (AUTO) 7.7 10^3/uL (1.7-8.2); BASOPHILS % (AUTO) 0.2 % (0-2); EOSINOPHILS % (AUTO) 0.5 % (0-6); LYMPHOCYTES % (AUTO) 16.7 % (13-45); MEAN CORPUSCULAR HEMOGLOBIN 26.4 pg (27.0-33.4); MEAN CORPUSCULAR HGB CONC 32.3 g/dL (32.0-36.0); MEAN CORPUSCULAR VOLUME 82 fl (80-97); MONOCYTES % (AUTO) 5.9 % (3-13); PLATELET COUNT 451 10^3/uL (150-450); RED BLOOD COUNT 3.42 10^6/uL (3.72-5.28); RED CELL DISTRIBUTION WIDTH 19.4 % (11.5-14.0); SEGMENTED NEUTROPHILS % (AUTO) 76.7 % (42-78); TOTAL CELLS COUNTED % (AUTO) 100 %
[2019-12-20 18:32] LABS: AMORPHOUS SEDIMENT,URINE TRACE /HPF; APPEARANCE,URINE CLOUDY; BILIRUBIN,URINE NEGATIVE (NEGATIVE); GLUCOSE, URINE NEGATIVE (NEGATIVE); KETONES,URINE NEGATIVE (NEGATIVE); LEUKOCYTE ESTERASE,URINE LARGE (NEGATIVE); NITRITE,URINE NEGATIVE (NEGATIVE); PARTIAL THROMBOPLASTIN TIME 31.6 SEC (23.5-35.8); PROTEIN,URINE 100 mg/dL (NEGATIVE); URINE SPECIFIC GRAVITY 1.015
[2019-12-20 18:33] LABS: COLOR,URINE PINK
[2019-12-20 18:37] LABS: INTERNATIONAL RATION (INR) 0.95; PROTHROMBIN TIME 12.9 SEC (11.4-15.4)
[2019-12-20 18:47] LABS: ALBUMIN 3.3 g/dL (3.5-5.0); ALKALINE PHOSPHATASE 178 U/L (38-126); ANION GAP 7 (5-19); ASPARTATE AMINO TRANSFERASE 44 U/L (14-36); BILIRUBIN,TOTAL 0.6 mg/dL (0.2-1.3); BLOOD UREA NITROGEN 14 mg/dL (7-20); CALCIUM 8.5 mg/dL (8.4-10.2); CARBON DIOXIDE 24 mmol/L (22-30); CHLORIDE 106 mmol/L (98-107); CREATINE KINASE 68 U/L (30-135); GLUCOSE 79 mg/dL (75-110); POTASSIUM 4.6 mmol/L (3.6-5.0); TOTAL PROTEIN 6.3 g/dL (6.3-8.2)
[2019-12-20 19:00] LABS: CREATINE KINASE MB 2.14 ng/mL (<4.55)
[2019-12-20 19:06] LABS: TROPONIN I < 0.012 ng/mL
--- NOTE | 2019-12-20 21:58 | ER Document Report ---
ED General - General Chief Complaint: Facial Droop Stated Complaint: BLURRED VISION Time Seen by Provider: 12/20/19 17:12 Mode of Arrival: Wheelchair TRAVEL OUTSIDE OF THE [place] IN LAST 30 DAYS: No - HPI Notes: Patient is a 29-year-old female, 8 days post delivery of triplets via , who presents the emergency department for evaluation of right-sided facial numbness and droop. The patient states that she noticed facial numbness while she was still in the hospital. She did not report it, thought it might just be normal after surgery. She states she first noticed the right side of her tongue was numb after brushing her teeth. She also had some tingling. She has had a constant throbbing headache since being discharged from the hospital 4 days ago. She points to her religious area. She states she really does not get headaches frequently. She states ibuprofen seems to help the pain temporarily, but it does come back. Patient states earlier today she had some blurred vision in her right eye, but that resolved. She states that she noted yesterday that she had a facial droop. She contacted her OB, told him her symptoms, and they recommended she come to the ER for further evaluation. - Related Data Allergies/Adverse Reactions: No Known Allergies Allergy (Verified 12/20/19 17:09) Home Medications: Labetalol, ibuprofen, oxycodone Past Medical History - General Information source: Patient - Social History Smoking Status: Never Smoker Chew tobacco use (# tins/day): No Frequency of alcohol use: None Drug Abuse: None Family History: Reviewed & Not Pertinent, Other Patient has homicidal ideation: No - Past Medical History Cardiac Medical History: Denies: Hx Coronary Artery Disease, Hx Heart Attack Pulmonary Medical History: Denies: Hx Asthma, Hx Bronchitis, Hx COPD, Hx Pneumonia Neurological Medical History: Denies: Hx Cerebrovascular Accident, Hx Seizures Renal/ Medical History: Denies: Hx Peritoneal Dialysis Musculoskeletal Medical History: Denies Hx Arthritis Past Surgical History: Reports: Hx Section, Hx Dilation and Curettage - Immunizations Hx Diphtheria, Pertussis, Tetanus Vaccination: No Review of Systems - Review of Systems Constitutional: See HPI Cardiovascular: No symptoms reported Respiratory: No symptoms reported Gastrointestinal: No symptoms reported Genitourinary: No symptoms reported Female Genitourinary: See HPI Musculoskeletal: No symptoms reported Skin: No symptoms reported Neurological/Psychological: See HPI Physical Exam - Vital signs Vitals: Temp Pulse Resp BP Pulse Ox 98.6 F 88 17 127/81 H 100 12/20/19 16:53 12/20/19 16:53 12/20/19 16:53 12/20/19 16:53 12/20/19 16:53 - Notes Notes: Vital signs reviewed, please refer to chart. Head is normocephalic, atraumatic. Pupils equal round, reactive to light. Neck is supple without meningismus. Heart is regular rate and rhythm. Lungs are clear to auscultation bilaterally. Abdomen is soft, nontender, normoactive bowel sounds throughout. Extremities without cyanosis, clubbing. Posterior calves are nontender. Peripheral pulses are equal. Skin is warm and dry. Patient is awake, alert, oriented x3. Patient with mildly diminished sensation to the first branch of the trigeminal nerve on the right. Patient with clear facial droop, asymmetry of motion of the right side of the mouth, inability to close the right eye. She has symmetrical movement of the eyebrows. Remainder of cranial nerves II through XII are grossly intact without focal neurological deficits. Strength is plus 5 out of 5 bilateral upper and lower extremities. Sensation is intact. Mildly hyperreflexive in the left upper extremity, particularly in the biceps and b rachioradialis. Intact [id number], rapid alternating movements, [id number]. Course - Re-evaluation Re-evalutation: 12/20/19 21:58 Patient presents to the emergency department for evaluation. She has a right- sided facial droop with numbness, intermittent blurred vision. She is 8 days post section. I am highly concerned about the possibility of a CVA in this young patient. She had initial orders as placed through triage. Her CT scan of the head is unremarkable. MRI was ordered for further evaluation. The patient has had numbness symptoms for several days, facial asymmetry for greater than 24 hours, and had recent surgery. She is clearly not a candidate for TPA. Her vital signs are currently stable. MRI was ordered. We will continue to monitor. 12/21/19 02:04 Patient's MRI is absolutely unremarkable. I discussed this case with Gabbi Wood, nurse practitioner on-call for neurology at [facility]. 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 She reports that any CVA would show up on MRI given the duration of her symptoms. I explained this to the patient. I advised that she follow-up closely with OB and primary care, but even if this were a CVA no different treatment would be urgently required. We will go ahead and treat her with antivirals and prednisone. I did verify with the patient that she is not breast-feeding. She is told if she develops worsening or new concerning symptoms of any sort she needs to return immediately to the ER for further evaluation. - Vital Signs Vital signs: Temp Pulse Resp BP Pulse Ox 98.6 F 85 16 122/97 H 100 12/20/19 20:33 12/20/19 20:33 12/20/19 20:33 12/20/19 20:33 12/20/19 20:33 - Laboratory Result Diagrams: 12/20/19 18:00 12/20/19 18:00 Laboratory results interpreted by me: 12/20/19 12/20/19 12/20/19 18:00 18:00 18:00 RBC 3.42 L Hgb 9.0 L Hct 28.0 L MCH 26.4 L RDW 19.4 H Plt Count 451 H Creatinine 0.49 L AST 44 H ALT 48 H Alkaline Phosphatase 178 H Albumin 3.3 L Urine Protein 100 H Urine Blood LARGE H Urine Urobilinogen 2.0 H Ur Leukocyte Esterase LARGE H - Diagnostic Test Radiology reviewed: Reports reviewed Radiology results interpreted by me: 12/21/19 02:[address] 12/20/19 17:18 IMPRESSION: NORMAL BRAIN CT WITHOUT CONTRAST. EVIDENCE OF ACUTE STROKE: NO. Head MRI 12/20/19 21:51 IMPRESSION: No acute abnormalities. Reserved - EKG Interpretation by Me Additional EKG results interpreted by me: 12/21/19 02:13 Sinus mechanism with rate of 81 bpm. Normal axis and intervals. No acute ST ch anges concerning for ischemia or infarction. Discharge - Discharge Clinical Impression: Soni palsy Condition: Stable Disposition: HOME, SELF-CARE Instructions: Soni's Palsy ([facility]), Steroid Medication Additional Instructions: Your findings today are consistent with an atypical presentation of Soni's palsy. Your MRI revealed no signs of stroke. Please take the steroids and Valtrex as directed until they are gone. If you develop worsening facial droop, numbness, difficulty seeing, speaking, or swallowing, difficulty moving an arm or leg, or any other new or concerning symptoms, you need to return immediately to the emergency department for evaluation. Otherwise follow-up with your primary care provider and your SKEIN BANDER as soon as possible. Prescriptions: Prednisone [Deltasone 20 mg Tablet] See Protocol PO DAILY 5 Days #20 tablet Valacyclovir HCl [Valtrex 500 Mg Tablet] 1,000 mg PO TID #41 tablet
--- NOTE | 2019-12-20 23:43 | RADIOLOGY REPORT (SQ) ---
EXAM DESCRIPTION: MR BRAIN WITHOUT IV CONTRAST COMPLETED DATE/TME: 12/20/2019 21:51 CLINICAL HISTORY: 29 years, Female, Right facial weakness, numbness, CVA rule out EXAM DESCRIPTION: CLINICAL HISTORY: Right facial weakness, numbness, CVA rule out COMPARISON: None TECHNIQUE: Multiplanar images of the brain were obtained without the administration of intravenous contrast FINDINGS: There is no evidence of acute ischemia. There is no evidence of acute mass, mass effect, midline shift or hemorrhage. No focal abnormal extra-axial fluid collection is seen. The ventricles, basal cisterns and extra-axial fluid spaces are normal in size and configuration. Brain parenchymal signal is normal. IMPRESSION: No acute abnormalities. Reserved
[2019-12-21] MEDS ORDERED: PREDNISONE 20 MG TABLET PO ONE (02:07)
[2019-12-21] MEDS ORDERED: VALACYCLOVIR HCL 500 MG TABLET PO ONE (02:07)
[2019-12-21 02:18] VITALS: BP 135/79
--- NOTE | 2019-12-23 14:05 | EKG REPORT ---
SEVERITY:- NORMAL ECG - SINUS RHYTHM : Confirmed by: Diana Ramirez 23-Dec-2019 14:04:20
== END 2019-12-21 02:25 | disposition home or self-care (01) ==
LOC: ER 16:46
DX: O99.355 Diseases of the nervous system complicating the puerperium (principal); G51.0 Bell's palsy; O90.89 Other complications of the puerperium, not elsewhere classified; R51 Headache; H53.8 Other visual disturbances; Z79.899 Other long term (current) drug therapy; Z98.890 Other specified postprocedural states; Z79.891 Long term (current) use of opiate analgesic; Z79.1 Long term (current) use of non-steroidal anti-inflammatories (NSAID)
CPT/HCPCS: 93005; 99285; 36415; 82553; 82550; 85025; 85610; 85730; 80053; 81001; 84484; 70551; 70450; 93010; J7512; J3490